=== PATIENT | female | born 1990 | race Caucasian/White ===

== ENCOUNTER 2021-06-10 00:27 | Day surgery (SDC) | payer OTHER, MEDICAID, SELFPAY ==
[2021-06-04 15:15] VITALS: BMI 44.0
--- NOTE | 2021-06-04 15:23 | SUR.PREOP ---
Report to the Outpatient Waiting Room, entrance under the green pavilion located off [facility], at time 0630 on date 06/10/21 . OR Time: . - You and your visitor will be asked a series of questions to screen for COVID 19 for your protection. - A mask is required within the hospital. Preoperative COVID Testing Requirements: No COVID Test needed if: (proof is required; if not received patient will have Rapid Test prior to entry) - Patient has received COVID Vaccine at least 14 days prior to procedure date or - Patient has positive COVID test result within last 90 days of surgery date. COVID Test needed if above criteria is not met If not COVID vaccinated a COVID test must be conducted within 72 hours of surgery and patient is asked to isolate self from time of testing until procedure. You will go to the [facility] for your COVID testing. The [facility] site is located at the corner of [address] [facility]. You will only be called if COVID results are positive and your surgeon may reschedule your elective surgery date. Patients may have clear liquids (water, carbonated beverages, clear teas, apple juice) until 3 hours prior to surgery with a maximum of 20 ounces. - No food from midnight until time of surgery - Infants may have breast milk until 4 hours before surgery, infant formula 6 hours prior to surgery. - Children will be allowed to drink immediately following surgery. If applicable, please bring a bottle or sippy cup to assist with drinking. Juice, water, soda, and popsicles are readily available. For infants on formula, please bring formula the day of surgery. Pacifiers are allowed. Take the following medications with a SIP of water the morning of surgery: ___n/a Medications to discontinue per physician ibuprofen Date to take last dose Please no make-up, nail grenadian, hairspray, perfume, deodorant, or body powder the day of surgery. No jewelry (including any body piercings) or valuables the day of surgery, leave them at home. Please take a shower or bath the night before, or the morning of, surgery with an antibacterial soap. Wear comfortable, loose fitting clothing. Children are encouraged to wear pajamas. - Jewelry must be removed prior to entering the operating room. Rings and piercings that are not removed may be cut off. - The hospital will not accept responsibility for valuables. - Please leave all valuables, including medications, at home the day of surgery. If you are going home after surgery, a licensed commercial collections driver must drive you home. - NO public transportation without another adult. - We recommend that an adult stay with you for 24 hours following discharge. - We also recommend that you do not drive, make important decision, drink alcoholic beverages, or take any drugs that were not prescribed by your health care provider for at least 24 hours after your discharge time. For Pediatric surgeries, we recommend two adults accompany the child home (only one inside the building at this time). One visitor will be allowed to accompany the patient into the hospital. Patients visitor will be instructed to remain with patient at all times or leave the building. We will allow the visitor to come back to the postoperative area when patient is ready. Follow any additional instructions given to you from your surgeon. Telephone instructions given to _shalonda rucker and asked if any additional questions and then verbalized understanding. Patient advised to call surgeon office or pre surgery nurse liaison [phone] if any additional questions.
--- NOTE | 2021-06-09 13:27 | WPDANESEPPF ---
Anes - Initial Pre Proc Eval Procedure: Operation Date: 06/10/21 09:30 Proposed Procedures p Diagnostic Laparoscopy, Hysteroscopy Dilation and Curettage with Denisse Endometrial Ablation, Possible Myosure, Bilateral Salpingectomy - Seng Maria MD Date/Time: 06/09/21 13:27 Surgeon: Seng Maria MD Pre Op Diagnosis: pelvic pain, abnormal uterine bleeding Patient Data Age: 30 Gender: F Height: 1.6 m Weight: 112.72 kg Allergies Allergy/AdvReac Type Severity Reaction Status Date / Time sumatriptan Allergy Intermediate Hives Verified 06/10/21 07:54 Home Medications Medication Instructions Recorded Confirmed Type albuterol sulfate 90 mcg/actuation 1 inh INHALATION Q4H 10/20/20 06/04/21 History aerosol inhaler bupropion HCl 150 mg tablet,12 hr 150 mg PO DAILY 10/20/20 06/04/21 History sustained-release buspirone 15 mg tablet 15 mg PO BID 10/20/20 06/04/21 History ibuprofen 200 mg capsule 200 mg PO Q6H PRN 10/20/20 06/04/21 History Patient hx anesthesia problems: none Family hx anesthesia problems: none Results Review: All pre-operative results and documents have been reviewed as part of the pre-operative evaluation. [facility] Past Medical History Medical History (Updated 06/09/21 @ 13:27 by Von Tomas DO) Anxiety Asthma GERD (gastroesophageal reflux disease) PTSD (post-traumatic stress disorder) Surgical History Surgical History History of ankle surgery Family History Family History Father Alcoholism Asthma Hypertension Depression Mother Hypertension Sibling Asthma Acute leukemia Depression Grandparent History of cancer Diabetes mellitus Grandparent Alcoholism History of cancer Hypertension Social History Social History Smoking status: Never smoker Alcohol intake: never Living arrangements: with family Spiritual care concerns: No Anes - Eval Final PreProcedure Day of Procedure 06/09/21 13:27 Patient weight: morbidly obese Heart: regular rate and rhythm Lungs: clear to auscultation and normal air movement Airway: Mallampati scale class III Neurological: alert and oriented Last oral intake: >/= 8 hours ASA classification: III Emergent: no Anesthetic plan: proceed Anesthesia type and monitoring: general ETT and standard monitoring Results Review: All pre-operative results and documents have been reviewed as part of the pre-operative evaluation. Informed Consent: The patient's anesthetic plan and its attendant risks and benefits were discussed with the patient/family/POA. Questions were solicited and answers provided to the satisfaction of the patient/family/POA.
[2021-06-10] VITALS (9 sets, daily range): BP systolic 121–160; BP diastolic 86–101; PULSE 71–102; RESP 12–18; TEMP 36–36.4; O2SAT 94–100
[2021-06-10] MEDS: LACTATED RINGERS 1,000 ML 30 ML IV CONT ×2 (08:05→11:05)
[2021-06-10] MEDS: ACETAMINOPHEN 500 MG TABLET 1000 MG PO (08:24)
--- NOTE | 2021-06-10 08:33 | PM.IMHP ---
H&P: HPI History of Present Illness Date/Time: 06/10/21 08:33 Patient with a history of pelvic pain, severe dysmenorrhea for over a year and has had irregular bleeding for over six months. She has had ultrasounds and MRIs. The last MRI showed small fibroids and possible adenomyosis. The fibroids were not seen with initial MRI. She has been treated for subclinical endometritis and this did not help her cramping. She has been tried on several oral contraceptive pills and has had continued irregular bleeding and cramping. She declines IUD other hormonal option. She has had an endometrial biopsy which was normal. Discussed options of endometrial ablation and risk benefits which she agrees to. Recommend diagnostic laparoscopy due to persistent pain. She has been informed of risk benefit of this procedure and agrees to laparoscopy. Chief Complaint: cramping and irregular bleeding Review of Systems Review of Systems: All systems reviewed & are unremarkable except as noted in HPI and below Cardiovascular: Cardiovascular: Reports no additional cardiovascular complaints, Denies chest pain and Denies dyspnea Respiratory: Respiratory: Reports no additional respiratory complaints and Denies dyspnea Gastrointestinal: Gastrointestinal: Reports abdominal pain, Denies change in bowel habits, Denies diarrhea, Denies nausea and Denies vomiting Genitourinary: Genitourinary: Reports pelvic pain Musculoskeletal: Musculoskeletal: Reports back pain Integumentary/Breasts: Skin/Breast: Reports system reviewed and no additional complaints, except as docu Neurologic: Reports system reviewed and no additional complaints, except as documented PMFSH Past Medical History Medical History Anxiety Asthma GERD (gastroesophageal reflux disease) PTSD (post-traumatic stress disorder) Surgical History Surgical History History of ankle surgery Family History Family History Father Alcoholism Asthma Hypertension Depression Mother Hypertension Sibling Asthma Acute leukemia Depression Grandparent History of cancer Diabetes mellitus Grandparent Alcoholism History of cancer Hypertension Social History Social History Smoking status: Never smoker Alcohol intake: never Living arrangements: with family Spiritual care concerns: No Meds Home Medications and Allergies Home Medications Medication Instructions Recorded Confirmed Type albuterol sulfate 90 mcg/actuation 1 inh INHALATION Q4H 10/20/20 06/04/21 History aerosol inhaler bupropion HCl 150 mg tablet,12 hr 150 mg PO DAILY 10/20/20 06/04/21 History sustained-release buspirone 15 mg tablet 15 mg PO BID 10/20/20 06/04/21 History ibuprofen 200 mg capsule 200 mg PO Q6H PRN 10/20/20 06/04/21 History Allergies Allergy/AdvReac Type Severity Reaction Status Date / Time sumatriptan Allergy Intermediate Hives Verified 06/10/21 07:54 Vital Signs Vital Signs - 24 hr 06/10/21 08:19 Temperature 97.3 F L Pulse Rate 87 Respiratory Rate 16 Pulse Oximetry 98 Exam Const: Orientation/consciousness: oriented to person and oriented to place HENMT: Head: normal to inspection Eyes: General: appearance normal, both eyes and all related structures Resp: Effort & Inspection: normal respiratory effort Auscultation: clear to auscultation bilaterally Cardio: Rate: regular rate Rhythm: regular rhythm GI: Inspection: normal to inspection GI Palp: No Rebound tenderness present : External Female Exam: normal external appearance Speculum Exam - Vagina: normal appearance of the vagina Speculum Exam - Cervix: normal appearance of the cervix Bimanual exam- vagina & uterus: other (uterus mildly tender anteriorly) Bimanual Exam- Adnexa, other: no
[2021-06-10] MEDS: KETOROLAC 15 MG/ML VIAL (*BKC) IV PUSH (08:55)
--- NOTE | 2021-06-10 09:08 | WPDHPUPDATE1 ---
History and Physical Update Update Date/Time: 06/10/21 09:08 History and Physical has been reviewed, including an updated exam of the patient. There are NO changes in the patient's condition. Risks, benefits, and alternatives have been discussed and questions answered. Patient agrees to proceed with procedure.
--- NOTE | 2021-06-10 09:26 | WPDHPUPDATE1 ---
History and Physical Update Update Date/Time: 06/10/21 09:26 History and Physical has been reviewed, including an updated exam of the patient. There are NO changes in the patient's condition. Risks, benefits, and alternatives have been discussed and questions answered. Patient agrees to proceed with procedure. Patient has been previously counseled regarding risk of poor outcome if she gets and she has satisfied parity and no desire for future conception and desires sterilization. Discussed bilateral salpingectomy as preferred method due to possible decrease risk of ovarian cancer in the future. She desires this. Will also perform the bilateral salpingectomy at time of laparoscopy as previously counseled.
[2021-06-10] MEDS: ceFAZolin 2 GM/D5W 50 ML 2 GM/50 ML BAG IVPB (09:36)
[2021-06-10] MEDS: BUPIVACAINE HCL 0.5% PF 30 ML VIAL INFILTRATE (10:26)
[2021-06-10] MEDS: fentaNYL CITRATE INJ (*CRX) 100 MCG/2 ML VIAL 25 MCG IV PUSH ×4 (11:38→12:01)
--- NOTE | 2021-06-11 09:35 | W.PM.PROC2 ---
Procedure Note - Detailed Date of Procedure 06/11/21 Pre-op Diagnosis pelvic pain, abnormal uterine bleeding, satisfied parity Post-op Diagnosis Same Procedure Performed 1. Diagnostic laparoscopy 2. Laparoscopic bilateral salpingectomy 3. Hysteroscopic endometrial ablation Surgeon Seng Maria MD Field Checker Beto Sarmiento Anesthesia General Indications Patient with a long history of dysmenorrhea and menometorrhagia. She has satisfied parity and desires permanent sterilization. Also has opted for endometrial ablation to help with the irregular bleeding. Findings Uterus sound to 7cm, cervix 3cm, on laparoscopy uterus appeared soft, no fibroids seen, no endometriosis or scar tissue, normal liver edge. Uterine cavity normal, proliferative endometrial lining. Description of Procedure After informed consent was obtained patient was taken to the operating room and general endotracheal anesthesia was administered. She was placed in low lithotomy position. Exam under anesthesia performed. No masses palpated. She was prepped in sterile fashion. Attention was turned to the vagina speculum inserted single-tooth tenaculum placed on anterior lip of the cervix. Uterus sound to 7cm. [place] uterine manipulator placed into the cervical canal. The speculum was removed. Attention was then turned to the abdomen. With sterile gloves a vertical incision was made at the umbilicus and a Veress needle was inserted into the abdomen confirmation into the abdomen obtained with free flow of fluid and normal peritoneal pressures. A pneumoperitoneum of 15 mm per mercury was obtained. The 5 mm port was inserted under laparoscopic visualization. Patient was placed in Trendelenburg position. Attention was turned to the left side of the abdomen and a 5 mm port was inserted under laparoscopic visualization. The pelvic organs were visualized. Attention was turned to the right side of the abdomen and another 5 mm port was inserted under laparoscopic visualization. The pelvis was inspected no endometriosis lesions seen in cul de sac or side wall or ovaries. Using the LigaSure the right fallopian tube was excised to near the entrance to the uterus. This was removed through the port. Attention was then turned to the left fallopian tube which was grabbed at the distal end and cauterized from the mesial salpinx to within a cm of the entrance to the entrance to the uterus. The fallopian tube was removed through the 5 mm port. Hemostasis was noted at both sites. Patient was taken out of Trendelenburg position the pneumoperitoneum was released. The skin incisions were closed with 4.0 vicryl and hemoderm. After informed consent was obtained patient was taken to the operating room and adequate IV sedation was administered. Attention was turned to the vagina. Speculum was inserted. Single-tooth tenaculum placed on the anterior lip of the cervix. The uterus was sounded to 7 cm. The cervix was dilated to an 8 Topete dilator. The cervical length was 3cm. The hysteroscope was inserted into the cavity. The findings were a normal uterine cavity with moderately proliferative tissue. The hysteroscope was removed. The cavity was sharply curretted. The Denisse ablation instrument was inserted into the cavity. Cavity assessment was performed and confirmed intact. The ablation was enabled. After 120 seconds the Denisse stopped. The ablation instrument was removed. The hysteroscope was inserted and there was noted to be good eschar with the cavity. The hysteroscope was removed the single-tooth tenaculum was removed hemostasis was noted at the tenaculum site. Sponge count correct. She was taken to recovery room in stable condition. Estimated Blood Loss 5 Drains No Packing No Pathology Yes (right and left fallopian tube segments 2. Endometrial currettings) Complications No immediate complications Condition Stable Disposition PACU
== END 2021-06-10 13:20 | disposition home or self-care (01) ==
PROVIDERS: Visit Provider Obstetrics & Gynecology
PROC: 0UDB8ZZ Extraction of Endometrium, Via Natural or Artificial Opening Endoscopic (ICD-10-PCS; CPT 58558; principal; 2021-06-10 09:30)
DX: N92.1 Excessive and frequent menstruation with irregular cycle (principal); R10.2 Pelvic and perineal pain; Z30.2 Encounter for sterilization; N94.6 Dysmenorrhea, unspecified; N85.8 Other specified noninflammatory disorders of uterus; J45.909 Unspecified asthma, uncomplicated; K21.9 Gastro-esophageal reflux disease without esophagitis; F41.9 Anxiety disorder, unspecified; F43.10 Post-traumatic stress disorder, unspecified; Z79.51 Long term (current) use of inhaled steroids; E66.01 Morbid (severe) obesity due to excess calories; Z68.41 Body mass index [BMI] 40.0-44.9, adult
CPT/HCPCS: 58661; 58563; 88302; 88305; A9270; J0690; J1100; J1170; J1885; J2250; J2405; J2704; J2710; J3010; J7030; J7120

== ENCOUNTER 2021-10-16 11:33 | Outpatient (CLI) | payer OTHER, MEDICAID, SELFPAY | END 2021-10-16 11:34 | disposition home or self-care (01) | PROVIDERS: PCP Nurse Practitioner Family; Visit Provider Obstetrics & Gynecology | DX: Z01.812 Encounter for preprocedural laboratory examination (principal); R10.2 Pelvic and perineal pain | CPT/HCPCS: 36415; 86850; 86900; 86901 ==

== ENCOUNTER 2021-10-23 02:07 | Day surgery (SDC) | payer OTHER, MEDICAID, SELFPAY ==
--- NOTE | 2021-10-13 10:32 | SUR.PREOP ---
Addendum entered by Keyona Watt RN 10/14/21 10:03: PLEASE BRING YOUR INHALER WITH YOU DAY OF SURGERY. Original Note: Report to the Outpatient Waiting Room, entrance under the [place] pavilion located off [facility], at time 0600 on date 10/23/21. OR Time: 0730. - You and your visitor will be asked a series of questions to screen for COVID 19 for your protection. - Only one visitor is allowed at this time. - The patient visitor is requested to leave or wait in car when not with patient. - A mask is required within the hospital. Patients may have clear liquids (water, carbonated beverages, clear teas, apple juice) until 3 hours prior to surgery with a maximum of 20 ounces. - No food from midnight until time of surgery - Infants may have breast milk until 4 hours before surgery, formula 6 hours prior to surgery. - Children will be allowed to drink immediately following surgery. If applicable, please bring a bottle or sippy cup to assist with drinking. Juice, water, soda, and popsicles are readily available. For infants on formula, please bring formula the day of surgery. Pacifiers are allowed. Take the following medications with a SIP of water the morning of surgery: BUSPIRONE Medications to discontinue per physician PATIENT STATES DR MEDRANO INSTRUCTED HER TO STOP TAKING HER IBUPROFEN 1 WEEK PRIOR TO HAVING SURGERY Please no make-up, nail armenian, hairspray, perfume, deodorant, or body powder the day of surgery. No jewelry (including any body piercings) or valuables the day of surgery, leave them at home. Please take a shower or bath the night before, or the morning of, surgery with an antibacterial soap. Wear comfortable, loose fitting clothing. Children are encouraged to wear pajamas. - Jewelry must be removed prior to entering the operating room. Rings and piercings that are not removed may be cut off. - The hospital will not accept responsibility for valuables. - Please leave all valuables, including medications, at home the day of surgery. If you are going home after surgery, a licensed bobcat driver/labor must drive you home. - NO public transportation without another adult. - We recommend that an adult stay with you for 24 hours following discharge. - We also recommend that you do not drive, make important decision, drink alcoholic beverages, or take any drugs that were not prescribed by your health care provider for at least 24 hours after your discharge time. For Pediatric surgeries, we recommend two adults accompany the child home (only one inside the building at this time). Follow any additional instructions given to you from your surgeon. If you or anyone in your household have experienced Covid symptoms in the past week, please notify your surgeon or the nurse liaison at the phone number below for possible testing. Telephone instructions given to FRITZ GABRIEL and asked if any additional questions and then verbalized understanding. Patient advised to call surgeon office or pre surgery nurse liaison [phone] if any additional questions.
[2021-10-13 10:39] VITALS: BMI 42.5
--- NOTE | 2021-10-22 16:03 | PM.IMHP ---
H&P: HPI History of Present Illness Date/Time: 10/22/21 16:03 Chief Complaint: Heavy periods and pelvic pain. Narrative: She is here for planned laparoscopic robotic assisted hysterectomy.? She is a has a long history, over a year of heavy irregular periods and severe dysmenorrhea. Her symptoms have been resistant to? hormonal treatment also resistant to endometrial ablation.?She continued to have prolonged periods with heavy flow after the ablation. She has had a prior laparoscopy no endometriosis seen.?She also had a prior salpingectomy at the time of her endometrial ablation. Prior endometrial biopsy was normal and curretage specimen normal. She has had prior imaging studies. She has had ultrasounds and MRIs. The last MRI showed small fibroids and possible adenomyosis. The fibroids were not seen with initial MRI. She has been treated for subclinical endometritis prior to the ablation and hysteroscopy and this did not help her cramping. She has been tried on several oral contraceptive pills and has had continued irregular bleeding and cramping. She desires definitive treatment of her symptoms with hysterectomy. Review of Systems Review of Systems: All systems reviewed & are unremarkable except as noted in HPI and below Constitutional: Constitutional: Reports no additional constitutional complaints Eyes: Eyes: Reports no additional eye complaints Cardiovascular: Cardiovascular: Reports no additional cardiovascular complaints Respiratory: Respiratory: Reports no additional respiratory complaints Gastrointestinal: Gastrointestinal: Reports no additional gastrointestinal complaints Genitourinary: Genitourinary: Reports no additional female genitourinary complaints and Reports as per HPI Integumentary/Breasts: Skin/Breast: Reports system reviewed and no additional complaints, except as docu Neurologic: Reports system reviewed and no additional complaints, except as documented Psychiatric: Psychiatric: Reports no additional psychiatric complaints Hematologic/Lymphatic: Hematologic/Lymphatic: Reports no additional hematologic/lymphatic complaints ON LICENSE OF [facility] Past Medical History Medical History Anxiety Asthma GERD (gastroesophageal reflux disease) Morbid obesity PTSD (post-traumatic stress disorder) Surgical History Surgical History History of ankle surgery Hx of bilateral salpingectomy Status post hysteroscopic ablation of endometrium Family History Family History Father Alcoholism Asthma Hypertension Depression Mother Hypertension Sibling Asthma Acute leukemia Depression Grandparent History of cancer Diabetes mellitus Grandparent Alcoholism History of cancer Hypertension Social History Social History Smoking status: Never smoker Spiritual care concerns: No Meds Home Medications and Allergies Home Medications Medication Instructions Recorded Confirmed Type albuterol sulfate 90 mcg/actuation 2 puff inhalation Q4H PRN 10/20/20 10/13/21 History aerosol inhaler Shortness Of Breath bupropion HCl 150 mg tablet,12 hr 150 mg PO HS 10/20/20 10/13/21 History sustained-release buspirone 15 mg tablet 15 mg PO BID 10/20/20 10/13/21 History ibuprofen 200 mg capsule 400 mg PO Q6H PRN Pain 10/20/20 10/13/21 History Allergies Allergy/AdvReac Type Severity Reaction Status Date / Time sumatriptan Allergy Intermediate Hives Verified 10/13/21 10:22 Exam Const: General: comfortable and no acute distress Orientation/consciousness: oriented to person, oriented to place and oriented to time Eyes: General: appearance normal, both eyes and all related structures Neck: Neck: normal visual inspection Resp: Effort & Inspection: normal respiratory effort Auscultati
[2021-10-23] VITALS (8 sets, daily range): BP systolic 118–146; BP diastolic 77–100; PULSE 85–96; RESP 14–18; TEMP 36.2–36.9; O2SAT 93–100
--- NOTE | 2021-10-23 06:36 | WPDANESEPPF ---
Anes - Initial Pre Proc Eval Procedure: Operation Date: 10/23/21 07:30 Proposed Procedures p Robotic Assisted Total Vaginal Hysterectomy - Seng Maria MD Date/Time: 10/23/21 06:36 Surgeon: Seng Maria MD Pre Op Diagnosis: chronic pelvic pain, dysmenorrhea, menorrhagia Patient Data Age: 30 Gender: F Height: 1.6 m Weight: 109 kg Allergies Allergy/AdvReac Type Severity Reaction Status Date / Time sumatriptan Allergy Intermediate Hives Verified 10/13/21 10:22 Home Medications Medication Instructions Recorded Confirmed Type albuterol sulfate 90 mcg/actuation 2 puff inhalation Q4H PRN 10/20/20 10/13/21 History aerosol inhaler Shortness Of Breath bupropion HCl 150 mg tablet,12 hr 150 mg PO HS 10/20/20 10/13/21 History sustained-release buspirone 15 mg tablet 15 mg PO BID 10/20/20 10/13/21 History ibuprofen 200 mg capsule 400 mg PO Q6H PRN Pain 10/20/20 10/13/21 History Patient hx anesthesia problems: none Family hx anesthesia problems: none Results Review: All pre-operative results and documents have been reviewed as part of the pre-operative evaluation. [facility] Past Medical History Medical History (Updated 10/23/21 @ 06:36 by Wong Arguelles MD) Anxiety Asthma GERD (gastroesophageal reflux disease) Morbid obesity PTSD (post-traumatic stress disorder) Surgical History Surgical History History of ankle surgery Hx of bilateral salpingectomy Status post hysteroscopic ablation of endometrium Family History Family History Father Alcoholism Asthma Hypertension Depression Mother Hypertension Sibling Asthma Acute leukemia Depression Grandparent History of cancer Diabetes mellitus Grandparent Alcoholism History of cancer Hypertension Social History Social History Smoking status: Never smoker Spiritual care concerns: No Anes - Eval Final PreProcedure Day of Procedure 10/23/21 06:36 Patient weight: morbidly obese Heart: regular rate and rhythm Lungs: clear to auscultation Airway: Mallampati scale class III Neurological: alert and oriented Last oral intake: >/= 8 hours ASA classification: III Emergent: no Anesthetic plan: proceed Anesthesia type and monitoring: general ETT and standard monitoring Results Review: All pre-operative results and documents have been reviewed as part of the pre-operative evaluation. Informed Consent: The patient's anesthetic plan and its attendant risks and benefits were discussed with the patient/family/POA. Questions were solicited and answers provided to the satisfaction of the patient/family/POA.
[2021-10-23] MEDS: ACETAMINOPHEN 500 MG TABLET 1000 MG PO (06:59)
[2021-10-23] MEDS: KETOROLAC 15 MG/ML VIAL (*BKC) IV PUSH (07:00)
--- NOTE | 2021-10-23 07:01 | WPDHPUPDATE1 ---
History and Physical Update Update Date/Time: 10/23/21 07:01 History and Physical has been reviewed, including an updated exam of the patient. There are NO changes in the patient's condition. Risks, benefits, and alternatives have been discussed and questions answered. Patient agrees to proceed with procedure.
[2021-10-23] MEDS: LACTATED RINGERS 1,000 ML 30 ML IV CONT ×2 (07:03→10:27)
[2021-10-23] MEDS: ceFAZolin 2 GM/D5W 50 ML 2 GM/50 ML BAG IVPB (07:30)
--- NOTE | 2021-10-23 10:01 | W.PM.PROC2 ---
Procedure Note - Detailed Date of Procedure 10/27/21 Pre-op Diagnosis chronic pelvic pain, dysmenorrhea, menorrhagia Post-op Diagnosis Other (1. menorrhagia 2. Pelvic pain 3. Fibroid 4. Right ovarian cyst hemorrhagic) Procedure Performed 1. Robotic assisted laparoscopic vaginal hysterectomy 2. Excision of right ovarian cyst Surgeon Seng Maria MD Supervisor Mapping Beto Sarmiento Anesthesia General Indications Patient with chronic pelvic pain and long history of menorrhagia not relieved with hormonal options or endometrial ablation. She desires definitive treatment. Findings Large right ovarian cyst, hemorrhagic fluid when entered Description of Procedure After informed consent was obtained she was taken to the operating room and general endotracheal anesthesia was administered. She was placed in low lithotomy position. An exam under anesthesia was performed. She was and prepped and draped in sterile fashion. Sandoval catheter placed in bladder. Attention was turned to the vagina speculum was inserted. Single-tooth tenaculum placed on anterior lip of the cervix the uterus sounded to 8 cm. The cervix was dilated to a 8 Topete dilator. A size 8 uterine manipulator was inserted and balloon would not inflate. A 6 cm small was inserted and balloon inflated. A size 3.0 colp cup was secured in the vagina. Then attention was turned to the abdomen with new sterile gloves. .25% marcaine injected subcutaneously. An incision was made horizontal 2 cm above the umbilicus. A veress needle was inserted into abdomen confirmation obtained with normal peritoneal pressures and free flow of saline through port. A Pneumoperitoneum of 15 mm per mercury was obtained. The robotic port was inserted under laparoscopic visualization. A small incision was made approximately 6 cm lateral to the port on the left side of the port. A size 8mm robotic port was inserted under laparoscopic visualization into the abdomen on the left side. Attention was turned to the right side of abdomen and a robotic port inserted under laparoscopic visualization. An assistant casino shift manager port was inserted superior and medial to this. She was placed in trendelberg position. Robotic arms attached. Instruments attached. Attention was turned to surgical consule. The right round ligament was ligated with vessel sealer instrument. The anterior leaf of the broad ligament was dissected anteriorly. The vesicoperitoneum was dissected from the lower uterus. The right side of the bladder was dissected from the lower uterine segment and upper cervix. The right ovarian ligament was ligated with the vessel sealer. The a posterior leaf of the broad ligament was further dissected. The uterine vessels on the right were skeletonized. The ascending uterine vessels on the right were cauterized. The uterine vessels were ligated. Attention was turned to the left round ligament which was ligated and the anterior leaf of the broad ligament was dissected anteriorly. The rest of the vesicouterine peritoneum was dissected off of the uterus. Once the bladder was dissected below the colp cup then the posterior leaf of the broad ligament was further dissected. The left ovarian ligament was ligated. The ascending uterine vessels were ligated with the vessel sealer. The uterine arteries were skeletonized. The uterine arteries were ligated. The cardinal ligaments were ligated. This was done on both sides. An incision was made anterior colpotomy incision was made and this was carried around until the cervix was removed from the vagina. The uterus and cervix were removed through the vagina. The vaginal cuff was closed in a running fashion with 0 V lock suture. Hemostasis was noted. The right ovarian cyst was incised. Dark mostly clotted blood was removed. The cyst wall was excised. Cautery was applied to area. Hemostasis noted. The pelvis was irrigated. Hemostasis noted. Hemoderm was applied in the pelvis. The patient was taken out of Trend
[2021-10-23] MEDS: fentaNYL CITRATE INJ (*CRX) 100 MCG/2 ML VIAL 25 MCG IV PUSH ×3 (10:48→10:58)
--- NOTE | 2021-10-23 11:45 | PC.NURSE ---
This patient, Emilie Cavanaugh, was received from PACU via stretcher on 10/23/21 at 1145. Patient oriented to unit policies and routines
[2021-10-23] MEDS: HYDROcodone/acetaminophen (*CRX) 5-325 MG TABLET 1 TAB PO (13:46)
[2021-10-23] MEDS: IBUPROFEN 600 MG TABLET PO (13:47)
== END 2021-10-23 16:50 | disposition home or self-care (01) ==
LOC: ANHSURGERY 11:01 → ANHOB2 11:37
PROVIDERS: PCP Nurse Practitioner Family; Visit Provider Obstetrics & Gynecology
PROC: (CPT 58550; principal; 2021-10-23 07:30)
DX: N92.0 Excessive and frequent menstruation with regular cycle (principal); N83.11 Corpus luteum cyst of right ovary; R10.2 Pelvic and perineal pain; D25.9 Leiomyoma of uterus, unspecified; N72 Inflammatory disease of cervix uteri; N94.4 Primary dysmenorrhea; Z79.51 Long term (current) use of inhaled steroids; F41.9 Anxiety disorder, unspecified; J45.909 Unspecified asthma, uncomplicated; K21.9 Gastro-esophageal reflux disease without esophagitis; F43.10 Post-traumatic stress disorder, unspecified; E66.01 Morbid (severe) obesity due to excess calories; Z68.41 Body mass index [BMI] 40.0-44.9, adult
CPT/HCPCS: 58550; 58662; S2900; 36415; 86850; 86900; 86901; 88305; 88307; 99199; A9270; J0690; J1100; J1170; J1885; J2250; J2405; J2704; J2710; J3010; J7030; J7120

== ENCOUNTER 2022-02-08 16:47 | Emergency (ER) | payer OTHER, MEDICAID, SELFPAY ==
[2022-02-08 16:50] VITALS: BP 131/82; PULSE 94; RESP 20; TEMP 36.6; O2SAT 98
--- NOTE | 2022-02-08 16:50 | ED.URI ---
HPI - URI/Sore Throat General Chief Complaint: Upper Respiratory Infection Stated Complaint: Sore Throat Time Seen by Provider: 02/08/22 16:50 Source: patient and RN notes reviewed History of Present Illness HPI Narrative: patient is a 31-year-old female who presents to the Urgent Care with complaints of a sore throat and postnasal drainage for 2 weeks. Patient denies any fever, nausea or vomiting. States that she wanted to be evaluated for strep considering her daughter woke up with a sore throat this morning. Patient's symptoms have not changed over the last 2 weeks. She has been taking cold medication. No other acute complaints. No acute distress noted. Patient aware of the plan of care. Some parts of this dictation were generated by voice recognition software and may contain typographical and/or grammatical inaccuracies. Related Data Home Medications Medication Instructions Recorded Confirmed albuterol sulfate 90 mcg/actuation 2 puff inhalation Q4H PRN 10/20/20 11/16/21 aerosol inhaler Shortness Of Breath bupropion HCl 150 mg tablet,12 hr 150 mg PO HS 10/20/20 11/16/21 sustained-release buspirone 15 mg tablet 15 mg PO BID 10/20/20 11/16/21 escitalopram oxalate 5 mg tablet 5 mg DAILY 02/08/22 02/08/22 Allergies Allergy/AdvReac Type Severity Reaction Status Date / Time sumatriptan Allergy Intermediate Hives Verified 02/08/22 17:13 Review of Systems Review of Systems: CONSTITUTIONAL: Denies fever, chills, or sweats. EYES: Denies visual changes, redness, or discharge. ENT: Denies rhinorrhea, congestion, or otalgia. Reports a sore throat CARDIOVASCULAR: Denies chest pain, palpitations, or edema. RESPIRATORY: Denies cough or dyspnea. GASTROINTESTINAL: Denies abdominal pain, nausea, vomiting, or diarrhea. GENITOURINARY: Denies dysuria or hematuria. SKIN: Denies rash or itching. MUSCULOSKELETAL: Denies back pain, joint pain, or myalgia. NEUROLOGIC: Denies headache, numbness, or weakness. All other systems reviewed are negative, except as documented in HPI. [facility] Past Medical History Medical History Anxiety Asthma GERD (gastroesophageal reflux disease) Morbid obesity PTSD (post-traumatic stress disorder) Surgical History Surgical History History of ankle surgery Hx of bilateral salpingectomy S/P removal of ovarian cyst right S/P vaginal hysterectomy Status post hysteroscopic ablation of endometrium Family History Family History Father Alcoholism Asthma Hypertension Depression Mother Hypertension Sibling Asthma Acute leukemia Depression Grandparent History of cancer Diabetes mellitus Grandparent Alcoholism History of cancer Hypertension Social History Social History Smoking status: Never smoker Spiritual care concerns: No Comments At the time of my signature, I reviewed and agree with the nursing past medical, surgical, social, and family history. There is no relevant family history pertinent to the patient complaint. Exam Narrative: GENERAL: This is a well-nourished, well-developed patient, in no apparent distress. HEAD: normocephalic, atraumatic. EYES: PERRL. Sclera clear/white. Vision is grossly intact. EARS: External ears normal, auditory canals clear and without drainage, TMs normal without perforation. Hearing grossly intact. NOSE: External nose normal with no obvious nasal discharge, nares without redness, no rhinorrhea. THROAT: Mucous membranes moist, posterior pharynx clear. mild postnasal drainage NECK: Neck supple, non-tender without lymphadenopathy CARDIOVASCULAR: Regular rate and rhythm without murmurs, gallops, or rubs. RESPIRATORY: Clear to auscultation. Breath sounds equal bilaterally. No wheezes, rales, or rhonchi. SKIN: war
== END 2022-02-08 17:41 | disposition home or self-care (01) ==
PROVIDERS: Emergency Provider Nurse Practitioner Family; PCP Nurse Practitioner Family
DX: J02.9 Acute pharyngitis, unspecified (principal); J45.909 Unspecified asthma, uncomplicated; K21.9 Gastro-esophageal reflux disease without esophagitis; E66.01 Morbid (severe) obesity due to excess calories; Z68.41 Body mass index [BMI] 40.0-44.9, adult; F41.9 Anxiety disorder, unspecified
CPT/HCPCS: 87081; 87880; 99213; G0463

== ENCOUNTER 2022-04-13 19:00 | Emergency (ER) | payer OTHER, MEDICAID, SELFPAY ==
--- NOTE | 2022-04-13 19:08 | ED.DENTAL ---
HPI - Dental/Oral General Chief complaint: Dental/Oral Stated complaint: tooth pain Time Seen by Provider: 04/13/22 19:08 Source: patient Mode of arrival: ambulatory History of Present Illness HPI Narrative: 31 y/o female presented for c/o left upper dental pain for 5 days. Endorses a broken tooth to that site since November 2021. She has a dental appointment in 1 week. Took some of her daughter's left over amoxicillin for the last 3 days. She endorses she is unable to eat due to the pain. Taking ibuprofen and Orajel without significant relief. Currently denies nausea, vomiting, diarrhea, fevers or chills. MD Complaint: tooth pain Related Data Home Medications Medication Instructions Recorded Confirmed buspirone 15 mg tablet 15 mg PO BID 10/20/20 04/13/22 escitalopram oxalate 5 mg tablet 5 mg PO DAILY 02/08/22 04/13/22 pantoprazole 40 mg tablet,delayed 40 mg PO BID 04/13/22 04/13/22 release Allergies Allergy/AdvReac Type Severity Reaction Status Date / Time sumatriptan Allergy Intermediate Hives Verified 04/13/22 19:08 Review of Systems Review of Systems: CONSTITUTIONAL: Denies body aches, fever, chills ENT: Denies rhinorrhea, congestion, sore throat, or otalgia. Reports dental pain CARDIOVASCULAR: Denies chest pain, palpitations RESPIRATORY: Denies cough or dyspnea. SKIN: Denies rash, itching, or wounds. MUSCULOSKELETAL: Denies myalgia. NEUROLOGIC: Denies headache, numbness, tingling, or weakness. [facility] Past Medical History Medical History Anxiety Asthma GERD (gastroesophageal reflux disease) Morbid obesity PTSD (post-traumatic stress disorder) Surgical History Surgical History History of ankle surgery Hx of bilateral salpingectomy S/P removal of ovarian cyst right S/P vaginal hysterectomy Status post hysteroscopic ablation of endometrium Family History Family History Father Alcoholism Asthma Hypertension Depression Mother Hypertension Sibling Asthma Acute leukemia Depression Grandparent History of cancer Diabetes mellitus Grandparent Alcoholism History of cancer Hypertension Social History Social History Smoking status: Never smoker Spiritual care concerns: No Comments At time of signature, I have reviewed and agree with nursing past medical, surgical, social and family history unless otherwise noted. Please see nursing chart for further information. There is no relevant family history pertinent to the presenting complaint Exam Narrative: GENERAL: Appears in pain; no acute distress. EYES: EOMI. No redness or drainage. Conjunctivae normal. ENT: Left cheek with mild swelling no erythema; Dental pain location of #15 broken tooth, mild gum swelling and tenderness; Mucous membranes pink and moist. TMs normal bilaterally. Throat normal. Uvula midline. NECK: Normal AROM. No lymphadenopathy or erythema. CHEST: No respiratory distress. Clear to auscultation. HEART: Regular rate and rhythm. No murmur appreciated. SKIN: Warm, dry, no rash. Normal skin turgor. NEURO: No focal deficits. Course Course Emergency Course: Patient is aware of diagnosis, understands and agrees to treatment plan. Anticipatory guidance given. Patient agrees to follow-up as directed and is aware of reasons to seek care at the emergency department. Portions of this record may have been created with voice recognition software Level of Care: Express Care Visit Vital Signs Vital signs: Vital Signs Temperature 97.3 F L 04/13/22 19:09 Pulse Rate 82 04/13/22 19:09 Respiratory Rate 18 04/13/22 19:09 Blood Pressure 147/101 H 04/13/22 19:09 Pulse Oximetry 99 04/13/22 19:09 Oxygen Delivery Room Air 04/13/22 19:09 Temperature 97.3 F L 01
[2022-04-13 19:09] VITALS: BP 147/101; PULSE 82; RESP 18; TEMP 36.3; O2SAT 99
[2022-04-13 19:11] VITALS: BP 147/101; PULSE 82; RESP 18; TEMP 36.3; O2SAT 99
== END 2022-04-13 19:26 | disposition home or self-care (01) ==
PROVIDERS: Emergency Provider Nurse Practitioner Family; PCP Nurse Practitioner Family
DX: K04.7 Periapical abscess without sinus (principal); F41.9 Anxiety disorder, unspecified; J45.909 Unspecified asthma, uncomplicated; K21.9 Gastro-esophageal reflux disease without esophagitis; E66.01 Morbid (severe) obesity due to excess calories; Z68.41 Body mass index [BMI] 40.0-44.9, adult
CPT/HCPCS: 99213; G0463

== ENCOUNTER 2022-05-02 19:22 | Emergency (ER) | payer OTHER, MEDICAID, SELFPAY ==
--- NOTE | ~2022-05-02 | XR_ITS ---
Right ankle Technique: AP, oblique, and lateral views were obtained. Clinical History: Inversion injury Findings: No acute fracture or dislocation is seen. Osseous alignment is anatomic. Ankle mortise and other visualized joint spaces are preserved. Soft tissues are otherwise unremarkable. Impression: Unremarkable right ankle. Reviewed, dictated and finalized at [facility]. 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
[2022-05-02 19:28] VITALS: BP 156/94; PULSE 99; RESP 14; TEMP 36.2; O2SAT 99
[2022-05-02 19:38] VITALS: BP 156/94; PULSE 99; RESP 14; TEMP 36.2; O2SAT 99
--- NOTE | 2022-05-02 19:45 | ED.GENADULT ---
HPI - General Adult General Chief complaint: Extremity Injury, Lower Stated complaint: Right Ankle Injury Source: patient Mode of arrival: ambulatory Limitations: no limitations History of Present Illness HPI narrative: Patient presents for evaluation of right ankle pain. Symptom onset just prior to arrival. She is walking on steps when she twisted her ankle. She now reports 8/10 pain in the affected area. Pain is throbbing and sharp. No radicular component. No paresthesias. She tried taking ibuprofen for symptoms with minimal improvement thereafter. She has fractured both ankles in the past and required surgical intervention on the left. No additional complaints or concerns. Related Data Home Medications Medication Instructions Recorded Confirmed buspirone 15 mg tablet 15 mg PO BID 10/20/20 05/02/22 pantoprazole 40 mg tablet,delayed 40 mg PO DAILY 04/13/22 05/02/22 release albuterol 90 mcg/actuation aerosol 90 mcg inhalation Q4H PRN Dyspnea 05/02/22 05/02/22 inhaler bupropion HCl 75 mg tablet 75 mg PO BID 05/02/22 05/02/22 Allergies Allergy/AdvReac Type Severity Reaction Status Date / Time sumatriptan Allergy Intermediate Hives Verified 05/02/22 19:35 Review of Systems Review of Systems: CONSTITUTIONAL: Denies fever, chills, or sweats. EYES: Denies visual changes, redness, or discharge. ENT: Denies rhinorrhea, congestion, sore throat, or otalgia. CARDIOVASCULAR: Denies chest pain, palpitations, or edema. RESPIRATORY: Denies cough or dyspnea. GASTROINTESTINAL: Denies abdominal pain, nausea, vomiting, or diarrhea. GENITOURINARY: Denies dysuria or hematuria. SKIN: Reports bruising to right ankle. Denies rash or itching. MUSCULOSKELETAL: Reports right ankle pain and swelling. NEUROLOGIC: Denies headache, numbness, dizziness, or weakness. PSYCHIATRIC: Denies anxiety or depression. [facility] Past Medical History Medical History Anxiety Asthma GERD (gastroesophageal reflux disease) Morbid obesity PTSD (post-traumatic stress disorder) Surgical History Surgical History History of ankle surgery Hx of bilateral salpingectomy S/P removal of ovarian cyst right S/P vaginal hysterectomy Status post hysteroscopic ablation of endometrium Family History Family History Father Alcoholism Asthma Hypertension Depression Mother Hypertension Sibling Asthma Acute leukemia Depression Grandparent History of cancer Diabetes mellitus Grandparent Alcoholism History of cancer Hypertension Social History Social History Smoking status: Never smoker Living arrangements: with family Spiritual care concerns: No Exam Narrative: GENERAL: Well-appearing, well-nourished, and in no acute distress. HEAD: Normocephalic, atraumatic. EYES: PERRLA and EOMI. ENT: Nares clear, no rhinorrhea or epistaxis. Mucous membranes moist. Oropharynx without tonsillar hypertrophy exudate or other lesions. Bilateral TMs pearly corea nonbulging NECK: Supple. No adenopathy or masses. No carotid bruits or JVD CHEST: Clear to auscultation. No respiratory distress. No wheezes rales or rhonchi HEART: Regular rate and rhythm. No murmur heard. Normal peripheral pulses. ABDOMEN: Soft, nontender, nondistended, normal active bowel sounds. EXTREMITIES: Able to dorsi and plantar flex right foot. Trace swelling noted to the lateral aspect of the right ankle. There is tenderness noted over the right lateral ankle without any crepitus or deformity. SKIN: Ecchymosis noted to the lateral aspect of the right ankle NEURO: No focal deficits. Alert and oriented x3. PSYCH: Normal mood and affect. Course Course Emergency Course: This is a 31-year-old female who presented for evaluation of right
== END 2022-05-02 19:55 | disposition home or self-care (01) ==
PROVIDERS: Emergency Provider Nurse Practitioner; PCP Nurse Practitioner Family
DX: S93.401A Sprain of unspecified ligament of right ankle, initial encounter (principal); X50.9XXA Other and unspecified overexertion or strenuous movements or postures, initial encounter; F41.9 Anxiety disorder, unspecified; J45.909 Unspecified asthma, uncomplicated; K21.9 Gastro-esophageal reflux disease without esophagitis; E66.01 Morbid (severe) obesity due to excess calories; Z68.41 Body mass index [BMI] 40.0-44.9, adult; F43.10 Post-traumatic stress disorder, unspecified
CPT/HCPCS: 73610; 99213; G0463

== ENCOUNTER 2022-10-02 17:37 | Emergency (ER) | payer OTHER, MEDICAID, SELFPAY ==
--- NOTE | ~2022-10-02 | XR_ITS ---
EXAMINATION: XR ribs RT 2V Exam Date/Time: 10/02/2022 17:50 CDT HISTORY: LATERAL FALL, LATERAL MID RIB PAIN Comparison: X-ray chest 01/09/2014. RESULT: Lines, tubes, and devices: None. Lungs and pleura: Clear, as visualized. Cardiothymic silhouette: Stable, as visualized. Other: No acute osseous or upper abdominal finding. IMPRESSION: No acute osseous finding in the right ribs. Reviewed, dictated and finalized at location K.
[2022-10-02 17:48] VITALS: BP 138/85; PULSE 92; RESP 16; TEMP 36.6; O2SAT 99
--- NOTE | 2022-10-02 18:11 | ED.GENADULT ---
HPI - General Adult General Chief complaint: Fall Stated complaint: Fall Injury/Right Side Pain Source: patient Mode of arrival: ambulatory Limitations: no limitations History of Present Illness HPI narrative: Patient presents for evaluation of right-sided rib pain. Symptom onset 2 days ago. 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 She her right chest wall against the ground. She did not hit her head. No loss of consciousness. She is not on blood thinners. At rest her pain is 6/10 severity but increases 8/10 with certain movements or deep inspiration. She does not smoke. Denies shortness of breath. She has underlying asthma but states that her symptoms are not worse at current time when compared to her baseline. She has taken 800mg ibuprofen without much improvement. Related Data Home Medications Medication Instructions Recorded Confirmed buspirone 15 mg tablet 15 mg PO BID 10/20/20 10/02/22 pantoprazole 40 mg tablet,delayed 40 mg PO DAILY 04/13/22 10/02/22 release bupropion HCl 150 mg tablet,12 hr 150 mg PO BID 10/02/22 10/02/22 sustained-release escitalopram oxalate 5 mg tablet 5 mg PO DAILY 10/02/22 10/02/22 Allergies Allergy/AdvReac Type Severity Reaction Status Date / Time sumatriptan Allergy Intermediate Hives Verified 10/02/22 18:09 Review of Systems Review of Systems: CONSTITUTIONAL: Denies fever, chills, or sweats. EYES: Denies visual changes, redness, or discharge. ENT: Denies rhinorrhea, congestion, sore throat, or otalgia. CARDIOVASCULAR: Denies chest pain, palpitations, or edema. RESPIRATORY: Denies cough or dyspnea. GASTROINTESTINAL: Denies abdominal pain, nausea, vomiting, or diarrhea. GENITOURINARY: Denies dysuria or hematuria. SKIN: Denies rash or itching. MUSCULOSKELETAL: Reports chest wall pain. NEUROLOGIC: Denies headache, numbness, dizziness, or weakness. PSYCHIATRIC: Denies anxiety or depression. [facility] Past Medical History Medical History Anxiety Asthma GERD (gastroesophageal reflux disease) Morbid obesity PTSD (post-traumatic stress disorder) Rib contusion Surgical History Surgical History History of ankle surgery Hx of bilateral salpingectomy S/P removal of ovarian cyst right S/P vaginal hysterectomy Status post hysteroscopic ablation of endometrium Family History Family History Father Alcoholism Asthma Hypertension Depression Mother Hypertension Sibling Asthma Acute leukemia Depression Grandparent History of cancer Diabetes mellitus Grandparent Alcoholism History of cancer Hypertension Social History Social History Smoking status: Never smoker Living arrangements: with family Spiritual care concerns: No Exam Narrative: GENERAL: Well-appearing, well-nourished, and in no acute distress. HEAD: Normocephalic, atraumatic. EYES: PERRLA and EOMI. ENT: Nares clear, no rhinorrhea or epistaxis. Mucous membranes moist. Oropharynx without tonsillar hypertrophy exudate or other lesions. Bilateral TMs pearly corea nonbulging NECK: Supple. No adenopathy or masses. No carotid bruits or JVD CHEST: Clear to auscultation. No respiratory distress. No wheezes rales or rhonchi. There is tenderness noted to the right lateral chest wall HEART: Regular rate and rhythm. No murmur heard. Normal peripheral pulses. ABDOMEN: Soft, nontender, nondistended, normal active bowel sounds. EXTREMITIES: Normal range of motion. No edema. SKIN: Warm, dry, no rash. NEURO: No focal deficits. Alert and oriented x3. PSYCH: Normal mood and affect. Course Course Emergency Course: This is a 31-year-old female who presented for evaluation of right rib pain following a fall 2 days ago. X-ray ne
== END 2022-10-02 18:28 | disposition home or self-care (01) ==
PROVIDERS: Emergency Provider Nurse Practitioner; PCP Family Medicine
DX: S20.211A Contusion of right front wall of thorax, initial encounter (principal); W10.9XXA Fall (on) (from) unspecified stairs and steps, initial encounter; Y99.0 Civilian activity done for income or pay; J45.909 Unspecified asthma, uncomplicated; K21.9 Gastro-esophageal reflux disease without esophagitis; E66.01 Morbid (severe) obesity due to excess calories; Z68.41 Body mass index [BMI] 40.0-44.9, adult; F41.9 Anxiety disorder, unspecified
CPT/HCPCS: 71100; 99213; G0463

== ENCOUNTER 2023-01-20 17:59 | Emergency (ER) | payer OTHER, MEDICAID, SELFPAY ==
--- NOTE | ~2023-01-20 | XR_ITS ---
EXAMINATION: XR hand RT min 3V INDICATION: Right hand pain TECHNIQUE: Three views of the right hand are obtained. COMPARISON: None available FINDINGS: No fracture, dislocation, or subluxation. The bones, soft tissues, and joint spaces are nor mal. IMPRESSION: 1. No acute osseous abnormality. Reviewed, dictated and finalized at location [facility].
--- NOTE | ~2023-01-20 | XR_ITS ---
EXAMINATION: XR wrist RT min 3V INDICATION: Right wrist pain TECHNIQUE: Three views of the right wrist are obtained. COMPARISON: None available FINDINGS: No fracture, dislocation, or subluxation. The bones, soft tissues, and joint spaces are nor mal. IMPRESSION: 1. No acute osseous abnormality. Reviewed, dictated and finalized at location [facility].
[2023-01-20 18:09] VITALS: BP 143/108; PULSE 88; RESP 18; TEMP 36.2; O2SAT 99
--- NOTE | 2023-01-20 19:04 | ED.GENADULT ---
HPI - General Adult General Chief complaint: Extremity Injury, Upper Stated complaint: Right Wrist Injury Time Seen by Provider: 01/20/23 19:04 Source: patient, RN notes reviewed and old records reviewed Mode of arrival: ambulatory Limitations: no limitations History of Present Illness HPI narrative: 32-year-old female presents to the [facility] with right dorsal hand pain worse with 4th metacarpal. Patient states that she tripped and landed hands out against a concrete. Did not hit head. No loss of consciousness. Pain with movement of the 4th finger. Capillary refill under 2 seconds. Positive radial pulse is Onset (ago): minute(s) (45) Related Data Home Medications Medication Instructions Recorded Confirmed buspirone 15 mg tablet 15 mg PO BID 10/20/20 01/20/23 pantoprazole 40 mg tablet,delayed 40 mg PO DAILY 04/13/22 01/20/23 release bupropion HCl 150 mg tablet,12 hr 150 mg PO BID 10/02/22 01/20/23 sustained-release escitalopram oxalate 5 mg tablet 5 mg PO DAILY 10/02/22 01/20/23 Allergies Allergy/AdvReac Type Severity Reaction Status Date / Time sumatriptan Allergy Intermediate Hives Verified 01/20/23 18:14 Review of Systems Review of Systems: All systems reviewed & are unremarkable except as noted in HPI and below Constitutional: Constitutional: Reports no additional constitutional complaints Eyes: Eyes: Reports no additional eye complaints ENT: Reports system reviewed and no additional complaints, except as documented Cardiovascular: Cardiovascular: Reports no additional cardiovascular complaints, Denies chest pain and Denies dyspnea Respiratory: Respiratory: Reports no additional respiratory complaints, Denies chest congestion, Denies cough and Denies dyspnea Gastrointestinal: Gastrointestinal: Reports no additional gastrointestinal complaints, Denies abdominal pain, Denies nausea and Denies vomiting Musculoskeletal: Musculoskeletal: Reports as per HPI Integumentary/Breasts: Skin/Breast: Reports system reviewed and no additional complaints, except as docu Neurologic: Reports system reviewed and no additional complaints, except as documented Psychiatric: Psychiatric: Reports no additional psychiatric complaints Allergic/Immunologic: Allergic/Immunologic: Reports no additional allergic/immunologic complaints PMFSH Past Medical History Medical History Anxiety Asthma GERD (gastroesophageal reflux disease) Morbid obesity PTSD (post-traumatic stress disorder) Rib contusion Surgical History Surgical History History of ankle surgery Hx of bilateral salpingectomy S/P removal of ovarian cyst right S/P vaginal hysterectomy Status post hysteroscopic ablation of endometrium Family History Family History Father Alcoholism Asthma Hypertension Depression Mother Hypertension Sibling Asthma Acute leukemia Depression Grandparent History of cancer Diabetes mellitus Grandparent Alcoholism History of cancer Hypertension Social History Social History Smoking status: Never smoker Living arrangements: with family Spiritual care concerns: No Comments At the time of my signature, I reviewed and agree with the nursing past medical, surgical, social, and family history. There is no relevant family history pertinent to the patient complaint. Exam Const: General: cooperative, healthy appearing, comfortable, no acute distress, well developed, alert and well nourished Nutritional Appearance: well nourished and obese Orientation/consciousness: patient oriented x3 Limitations: no limitations HENMT: Head: normal to inspection Ears: hearing grossly normal bilaterally and external ears normal Face/Nose/Sinus: Normal external nose present, Normal nare
== END 2023-01-20 19:14 | disposition home or self-care (01) ==
PROVIDERS: Emergency Provider Nurse Practitioner; PCP Family Medicine
DX: S63.501A Unspecified sprain of right wrist, initial encounter (principal); W01.0XXA Fall on same level from slipping, tripping and stumbling without subsequent striking against object, initial encounter
CPT/HCPCS: 73110; 73130; 99213; G0463

== ENCOUNTER 2023-02-24 12:24 | Emergency (ER) | payer OTHER, MEDICAID, SELFPAY ==
--- NOTE | 2023-02-24 12:52 | PC.NURSE ---
1230 following registration/prior to triage pt informed staff she does not want to be seen at this facility, stating she has was previously seen in er and would return.
== END 2023-02-24 12:30 | disposition left against medical advice (07) ==
LOC: EXPBETH 12:27
PROVIDERS: Emergency Provider Registered Nurse; PCP Family Medicine
DX: Z20.822 Contact with and (suspected) exposure to COVID-19 (principal)
CPT/HCPCS: 99199

== ENCOUNTER 2023-03-16 15:38 | Emergency (ER) | payer OTHER, MEDICAID, SELFPAY ==
--- NOTE | 2023-03-16 15:43 | ED.URI ---
HPI - URI/Sore Throat General Chief Complaint: Upper Respiratory Infection Stated Complaint: Needs Covid Confirm for work Time Seen by Provider: 03/16/23 15:58 Source: patient and RN notes reviewed Mode of arrival: ambulatory Limitations: no limitations History of Present Illness HPI Narrative: 32-year-old female presents with concern for returning to work. She reports she began having a cough 2 weeks ago. Reports Tuesday she started having nasal congestion and drainage. She reports on Tuesday she began having body aches, chills, general malaise, fatigue. She reports she tested positive for COVID on Tuesday. She has missed work and was supposed to return today but she still feels ill. She reports harsh cough. MD elicited complaint: cough and sore throat Related Data Home Medications Medication Instructions Recorded Confirmed buspirone 15 mg tablet 15 mg PO BID 10/20/20 03/16/23 pantoprazole 40 mg tablet,delayed 40 mg PO BID 04/13/22 03/16/23 release bupropion HCl 150 mg tablet,12 hr 150 mg PO BID 10/02/22 03/16/23 sustained-release escitalopram oxalate 5 mg tablet 5 mg PO DAILY 10/02/22 03/16/23 Allergies Allergy/AdvReac Type Severity Reaction Status Date / Time sumatriptan Allergy Intermediate Hives Verified 03/16/23 16:02 Review of Systems Review of Systems: CONSTITUTIONAL: Reports malaise, fatigue EYES: Denies visual changes, redness, or discharge. ENT: Reports rhinorrhea, congestion, and sore throat. CARDIOVASCULAR: Denies chest pain, palpitations, or edema. RESPIRATORY: Reports cough. Denies dyspnea. GASTROINTESTINAL: Denies abdominal pain, nausea, vomiting, diarrhea SKIN: Denies rash or itching. MUSCULOSKELETAL: Reports myalgia. NEUROLOGIC: Denies headache. All systems reviewed & are unremarkable except as noted in HPI and below PMFSH Past Medical History Medical History Anxiety Asthma GERD (gastroesophageal reflux disease) Morbid obesity PTSD (post-traumatic stress disorder) Rib contusion Surgical History Surgical History History of ankle surgery Hx of bilateral salpingectomy S/P removal of ovarian cyst right S/P vaginal hysterectomy Status post hysteroscopic ablation of endometrium Family History Family History Father Alcoholism Asthma Hypertension Depression Mother Hypertension Sibling Asthma Acute leukemia Depression Grandparent History of cancer Diabetes mellitus Grandparent Alcoholism History of cancer Hypertension Social History Social History Smoking status: Never smoker Alcohol intake: unknown Substance use: unknown Lack of Transportation: No Lack of Food: Never True Current Housing: I Have Housing Concerned About Future Housing: No Difficulty Paying Gas/Electric Bills: No Difficulty Paying for Meds: No Currently Unemployed: No Living arrangements: with family Occupation/Education: occupation Gender identity (if verbalized by the patient): Female Spiritual care concerns: No Comments At time of signature, agree with nursing past medical, surgical, social and family history. There is no relevant family history pertinent to the presenting complaint Exam Narrative: GENERAL: Well-appearing, well-nourished, and in no acute distress. HEAD: Normocephalic EYES: PERRLA, conjunctivae clear ENT: Nares clear. Mucous membranes moist. TM pearly corea with dull light reflex bilaterally; no tragal tenderness. Oropharynx erythematous without lesions. Tonsils not enlarged and without exudate, no drooling, no hoarseness, no trismus, uvula midline. NECK: Supple. No lymphadenopathy CHEST: Clear to auscultation, breath sounds equal. No wheezing, rhonchi, rales, or stridor. No respiratory distress, speaks in full sentences.
[2023-03-16 15:45] VITALS: BP 155/87; PULSE 100; RESP 20; TEMP 36.2; O2SAT 98
== END 2023-03-16 16:20 | disposition home or self-care (01) ==
PROVIDERS: Emergency Provider Nurse Practitioner; PCP Family Medicine
DX: J40 Bronchitis, not specified as acute or chronic (principal); Z20.822 Contact with and (suspected) exposure to COVID-19; J45.909 Unspecified asthma, uncomplicated; K21.9 Gastro-esophageal reflux disease without esophagitis; E66.01 Morbid (severe) obesity due to excess calories; Z68.41 Body mass index [BMI] 40.0-44.9, adult; F41.9 Anxiety disorder, unspecified
CPT/HCPCS: 87081; 87426; 87804; 87880; 99213; C9803; G0463

== ENCOUNTER 2023-07-08 15:56 | Outpatient (CLI) | payer OTHER, MEDICAID, SELFPAY ==
--- NOTE | ~2023-07-08 | US_ITS ---
US pelvic complete w TV DATE: 07/08/2023 16:55 INDICATION: Follow-up of a left ovarian cyst reportedly seen on outside imaging in January 2023 TECHNIQUE: Real-time imaging via transabdominal and transvaginal approaches COMPARISON: None FINDINGS: The uterus is been surgically removed. Neither ovary is well demonstrated.. No pelvic mass lesion or abnormal pelvic fluid collection is detected. IMPRESSION: Status post hysterectomy Neither ovary is well demonstrated. No cyst or pelvic mass lesion is identified. Consider pelvic CT e xamination. Reviewed, dictated and finalized at [facility]. Reviewed, dictated and finalized at location [facility]. IMPRESSION: Status post hysterectomy Neither ovary is well demonstrated. No cyst or pelvic mass lesion is identified . Consider pelvic CT examination.
== END 2023-07-08 15:57 | disposition home or self-care (01) ==
PROVIDERS: PCP Family Medicine; Visit Provider Obstetrics & Gynecology
DX: N83.202 Unspecified ovarian cyst, left side (principal)
CPT/HCPCS: 76830; 76856

== ENCOUNTER 2023-12-10 14:58 | Emergency (ER) | payer OTHER, MEDICAID, SELFPAY ==
--- NOTE | 2023-12-10 15:05 | ED.GENADULT ---
HPI - General Adult General Chief complaint: Upper Respiratory Infection Stated complaint: sore throat Time Seen by Provider: 12/10/23 15:05 Source: patient, RN notes reviewed and old records reviewed Mode of arrival: ambulatory Limitations: no limitations History of Present Illness HPI narrative: 32-year-old female to express Care with complaint of sore throat for 3 days. Patient requesting test for strep throat. patient reports attempting to treat at home with ibuprofen blood relief. 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 Patient denies shortness of breath, difficulty swallowing, cough, fever, pertinent medical history. Patient able tolerate fluids by mouth. Respirations even and nonlabored. Patient able to speak in complete sentences without difficulty. Patient in no acute distress. Related Data Home Medications Medication Instructions Recorded Confirmed buspirone 15 mg tablet 15 mg PO BID 10/20/20 10/13/23 pantoprazole 40 mg tablet,delayed 40 mg PO BID 04/13/22 10/13/23 release bupropion HCl 150 mg tablet,12 hr 150 mg PO BID 10/02/22 10/13/23 sustained-release escitalopram oxalate 5 mg tablet 5 mg PO DAILY 10/02/22 10/13/23 Allergies Allergy/AdvReac Type Severity Reaction Status Date / Time sumatriptan Allergy Intermediate Hives Verified 10/13/23 13:20 Review of Systems Review of Systems: All systems reviewed & are unremarkable except as noted in HPI and below Constitutional: Constitutional: Reports no additional constitutional complaints Eyes: Eyes: Reports no additional eye complaints ENT: Reports as per HPI and Reports sore throat Cardiovascular: Cardiovascular: Reports no additional cardiovascular complaints, Denies chest pain and Denies dyspnea Respiratory: Respiratory: Reports no additional respiratory complaints, Denies cough and Denies dyspnea Musculoskeletal: Musculoskeletal: Reports no additional musculoskeletal complaints Neurologic: Reports system reviewed and no additional complaints, except as documented Psychiatric: Psychiatric: Reports no additional psychiatric complaints PMF Past Medical History Medical History Anxiety Asthma GERD (gastroesophageal reflux disease) Morbid obesity PTSD (post-traumatic stress disorder) Rib contusion Surgical History Surgical History History of ankle surgery Hx of bilateral salpingectomy S/P removal of ovarian cyst right S/P vaginal hysterectomy Status post hysteroscopic ablation of endometrium Family History Family History Father Alcoholism Asthma Hypertension Depression Mother Hypertension Sibling Asthma Acute leukemia Depression Grandparent History of cancer Diabetes mellitus Grandparent Alcoholism History of cancer Hypertension Social History Social History Smoking status: Never smoker Alcohol intake: unknown Substance use: unknown Lack of Transportation: No Lack of Food: Never True Current Housing: I Have Housing Concerned About Future Housing: No Difficulty Paying Gas/Electric Bills: No Difficulty Paying for Meds: No Currently Unemployed: No Living arrangements: with family Occupation/Education: occupation Gender identity (if verbalized by the patient): Female Spiritual care concerns: No Comments At the time of my signature, I reviewed and agree with the nursing past medical, surgical, social, and family history. There is no relevant family history pertinent to the patient complaint. Exam Const: General: cooperative, no acute distress, alert, in distress mild ( From throat pain), uncomfortable and well nourished Nutritional Appearance: well nourished Orientation/consciousness
[2023-12-10 15:10] VITALS: BP 157/82; PULSE 93; RESP 18; TEMP 36.4; O2SAT 100
[2023-12-10 15:25] LABS: EDSTREPNEGPOS1 Negative (Negative)
== END 2023-12-10 16:03 | disposition home or self-care (01) ==
PROVIDERS: Emergency Provider Nurse Practitioner Family; PCP Family Medicine
DX: B37.0 Candidal stomatitis (principal); J45.909 Unspecified asthma, uncomplicated; K21.9 Gastro-esophageal reflux disease without esophagitis; E66.01 Morbid (severe) obesity due to excess calories; Z68.41 Body mass index [BMI] 40.0-44.9, adult; F41.9 Anxiety disorder, unspecified
CPT/HCPCS: 87081; 87880; 99213; G0463

== ENCOUNTER 2023-12-22 14:28 | Emergency (ER) | payer OTHER, MEDICAID, SELFPAY ==
[2023-12-22 14:50] VITALS: BP 132/85; PULSE 82; RESP 20; TEMP 36.9; O2SAT 100
--- NOTE | 2023-12-22 15:01 | ED.URI ---
HPI - URI/Sore Throat General Chief Complaint: Upper Respiratory Infection Stated Complaint: head cold/congestion Time Seen by Provider: 12/22/23 15:01 Source: patient Mode of arrival: ambulatory Limitations: no limitations History of Present Illness HPI Narrative: 32-year-old female presents with complaint of sinus congestion, sinus pressure, postnasal drainage, cough and sinus headaches for 1 week. Taking daily allergy medication with no relief. Took come COVID test and was negative. Afebrile. All systems reviewed and negative except as noted above. Related Data Home Medications Medication Instructions Recorded Confirmed buspirone 15 mg tablet 15 mg PO BID 10/20/20 10/13/23 pantoprazole 40 mg tablet,delayed 40 mg PO BID 04/13/22 10/13/23 release bupropion HCl 150 mg tablet,12 hr 150 mg PO BID 10/02/22 10/13/23 sustained-release escitalopram oxalate 5 mg tablet 5 mg PO DAILY 10/02/22 10/13/23 Allergies Allergy/AdvReac Type Severity Reaction Status Date / Time sumatriptan Allergy Intermediate Hives Verified 10/13/23 13:20 Review of Systems Review of Systems: CONSTITUTIONAL: Denies fever, chills, or sweats. reports fatigue. EYES: Denies visual changes, redness, or discharge. ENT: Reports rhinorrhea, congestion. Denies sore throat, or otalgia. CARDIOVASCULAR: Denies chest pain, palpitations, or edema. RESPIRATORY: reports cough. Denies dyspnea. GASTROINTESTINAL: Denies abdominal pain, nausea, vomiting, or diarrhea. GENITOURINARY: Denies dysuria or hematuria. SKIN: Denies rash or itching. MUSCULOSKELETAL: Denies back pain, joint pain, or myalgia. NEUROLOGIC: Denies headache, numbness, or weakness. PSYCHIATRIC: Denies anxiety or depression. All other systems reviewed are negative, except as documented in HPI. [facility] Past Medical History Medical History Anxiety Asthma GERD (gastroesophageal reflux disease) Morbid obesity PTSD (post-traumatic stress disorder) Rib contusion Surgical History Surgical History History of ankle surgery Hx of bilateral salpingectomy S/P removal of ovarian cyst right S/P vaginal hysterectomy Status post hysteroscopic ablation of endometrium Family History Family History Father Alcoholism Asthma Hypertension Depression Mother Hypertension Sibling Asthma Acute leukemia Depression Grandparent History of cancer Diabetes mellitus Grandparent Alcoholism History of cancer Hypertension Social History Social History Smoking status: Never smoker Alcohol intake: unknown Substance use: unknown Lack of Transportation: No Lack of Food: Never True Current Housing: I Have Housing Concerned About Future Housing: No Difficulty Paying Gas/Electric Bills: No Difficulty Paying for Meds: No Currently Unemployed: No Living arrangements: with family Occupation/Education: occupation Gender identity (if verbalized by the patient): Female Spiritual care concerns: No Comments At time of signature, agree with nursing past medical, surgical, social and family history. There is no relevant family history pertinent to the presenting complaint. Exam Narrative: GENERAL: This is a well-nourished, well-developed patient, in no apparent distress. HEAD: normocephalic, atraumatic. EYES: PERRL. Sclera clear/white. Vision is grossly intact. EARS: External ears normal, auditory canals clear and without drainage, Fluid bilateral TMs without erythema or perforation. Hearing grossly intact. NOSE: External nose normal with moderate congestion, purulent nasal drainage, erythema and swelling to bilateral nares THROAT: Mucous membranes moist, erythema postnasal drainage. Mild swelling without exudates. NE
== END 2023-12-22 15:15 | disposition home or self-care (01) ==
PROVIDERS: Emergency Provider Nurse Practitioner Family; PCP Family Medicine
DX: J01.90 Acute sinusitis, unspecified (principal); J45.909 Unspecified asthma, uncomplicated; K21.9 Gastro-esophageal reflux disease without esophagitis; E66.01 Morbid (severe) obesity due to excess calories; Z68.42 Body mass index [BMI] 45.0-49.9, adult; F41.9 Anxiety disorder, unspecified
CPT/HCPCS: 99213; G0463

== ENCOUNTER 2024-10-03 16:32 | Emergency (ER) | payer OTHER, MEDICAID, SELFPAY ==
[2024-10-03 16:35] VITALS: BP 149/84; PULSE 113; RESP 16; TEMP 37; O2SAT 97
--- NOTE | 2024-10-03 16:36 | ED_ITS ---
HPI - Skin/Abscess/Foreign Bdy General Chief complaint: Skin/Abscess/Foreign Body Stated complaint: Abscess on Left Leg Time Seen by Provider: 10/03/24 16:55 Source: patient and RN notes reviewed Mode of arrival: ambulatory Limitations: no limitations History of Present Illness HPI narrative: 33-year-old female presents concern for an abscess on her left leg. She reports an abscess that area that has been draining. Reports it is painful to sit on. She denies fever, aches, chills reports she has had abscesses in the past. MD complaint: abscess/boil Related Data Home Medications ?Medication ?Instructions ?Recorded ?Confirmed ?Last Taken ?Type buspirone 15 mg tablet 15 mg PO BID 10/20/20 10/13/23 10/23/21 05:00 History bupropion HCl 150 mg tablet,12 hr 150 mg PO BID 10/02/22 10/13/23 Unknown History sustained-release escitalopram oxalate 5 mg tablet 5 mg PO DAILY 10/02/22 10/03/24 Unknown History hydroxyzine HCl 25 mg tablet mg 01/29/24 Unknown History escitalopram oxalate 10 mg tablet mg 10/03/24 Unknown History meloxicam 15 mg tablet mg 10/03/24 Unknown History Allergies Allergy/AdvReac Type Severity Reaction Status Date / Time sumatriptan Allergy Intermediate Hives Verified 10/03/24 16:54 Review of Systems 2 Review of Systems: CONSTITUTIONAL: Denies malaise, chills, sweats, or fever. EYES: Denies redness, or discharge. RESPIRATORY: Denies cough or dyspnea. GASTROINTESTINAL: Denies abdominal pain, nausea, vomiting SKIN: Reports abscess MUSCULOSKELETAL: Denies joint pain or myalgia. NEUROLOGIC: Denies headache. All systems reviewed & are unremarkable except as noted in HPI and below PMFSH Past Medical History Medical History Anxiety Asthma GERD (gastroesophageal reflux disease) Morbid obesity PTSD (post-traumatic stress disorder) Rib contusion Surgical History Surgical History History of ankle surgery Hx of bilateral salpingectomy S/P removal of ovarian cyst right S/P vaginal hysterectomy Status post hysteroscopic ablation of endometrium Family History Family History Father Alcoholism Asthma Hypertension Depression Mother Hypertension Sibling Asthma Acute leukemia Depression Grandparent History of cancer Diabetes mellitus Grandparent Alcoholism History of cancer Hypertension Social History Social History Smoking status: Never smoker Alcohol intake: unknown Substance use: unknown Lack of Transportation: No Lack of Food: Never True Current Housing: I Have Housing Concerned About Future Housing: No Difficulty Paying Gas/Electric Bills: No Difficulty Paying for Meds: No Currently Unemployed: No Living arrangements: with family Occupation/Education: occupation Gender identity (if verbalized by the patient): Female Spiritual care concerns: No Comments At time of signature, agree with nursing past medical, surgical, social and family history. There is no relevant family history pertinent to the presenting complaint Exam Narrative: GENERAL: Well-appearing, well-nourished, and in no acute distress. HEAD: Normocephalic, atraumatic. EYES: PERRLA, conjunctivae clear, and EOMI. ENT: Mucous membranes moist. NECK: Supple. No lymphadenopathy CHEST: Clear to auscultation. No respiratory distress. HEART: Regular rate and rhythm. SKIN: Warm, dry. Round 4.5 x 3 cm raised area of erythema, induration, warmth, tenderness with sharp margins noted below the lower left buttock with serosanguineous and yellow drainage. No fluctuation NEURO: Alert and oriented x3. PSYCH: Normal mood and affect Course Course Emergency Course: Patient is aware of diagnosis, understands and agrees to treatment plan. Anticipatory guidance given. Patient agrees to follow-up as directed and is aware of reasons to seek care at the emergency department. Portions of this record may have been created with voice recognition software Level of Care: Express Care Visit Vital Signs Vital signs: Reviewed. MDM - Skin/Abscess/Foreign Bdy MDM Narrative Medical decision making narrative: I evaluated this in the express care. History is obtained from patient who is an independent historian and physical exam was performed.? Available medical records were reviewed. ? Exam findings and relevant testing show no acute concerns or changes; patient is non-toxic appearing and is in no distress. Does not appear at this time to be erythema multiforme, bullous, SJS, TEN; no evidence at this time to suggest RMSF, NSTI, endocarditis or Lyme disease; patient looks well, nontoxic and is tolerating oral intake; no neurologic signs or symptoms; no headache, photophobia or neck pain; afebrile.? Patient does not have history of of penetrating trauma, laceration, blunt trauma, recent surgery, immunosuppression, malignancy, obesity, alcoholism, corticosteroid use.? Discussed the importance of follow-up, patient agrees; question, cellulitis versus necrotizing soft tissue infection versus abscess.?? Patient is appropriate for outpatient treatment and follow-up. Critical Care Time Critical Care Time Critical Care Time: No Discharge Plan Discharge Clinical Impression: Abscess Patient Disposition: Home Condition: Stable Instructions: Antibiotic Form, Abscess (ED) Additional Instructions: Please follow up with your Primary Care Doctor within 48-72 hours - call for an appointment. Rest and elevate affected area; apply moist heat 3-4 times daily for 10-15 minutes. Take Motrin 600mg every 8 hours with food for pain. Please take Antibiotics as directed. If you experience any worsening redness, swelling, streaking (red lines), fever or chills please go to the ER Patient Language: Maldivian Prescriptions: New clindamycin HCl 300 mg capsule 300 mg PO Q8H 7 Days Qty: 21 0RF ketorolac 10 mg tablet 10 mg PO Q6H PRN (Reason: pain) 5 Days Qty: 20 0RF Held meloxicam 15 mg tablet Hold Instructions: Resume on 10/09/24. Do not take while taking ketorolac No Action bupropion HCl 150 mg tablet sustained-release 12 hr 150 mg PO BID escitalopram oxalate 5 mg tablet 5 mg PO DAILY hydroxyzine HCl 25 mg tablet escitalopram oxalate 10 mg tablet buspirone 15 mg tablet 15 mg PO BID Follow-up/Referrals: Andres,Radha Mcintyre MD [Primary Care Provider] - Stand Alone Forms: Work/School Release IP Time of Disposition: 17:04
--- OUTSIDE RECORDS SUMMARY | 2024-10-03 16:36 | XMS_ITS | Referral Summary ---
Author Organization [facility] Address [address] [place] [id number] Care Team Providers Care Overlock Sewing Machine Operator Name Role Phone Radha Ruvalcaba MD Primary Care Provider [phone] Encounters Date Type Department Care Team Description 07/31/2024 Telephone [facility] Gastroenterology at [address] [place] [address] Melissa Douglass MA from Last 3 Months Allergies Active Allergy Reactions Criticality Noted Date Comments Sumatriptan Medications busPIRone (BUSPAR) 10 mg tabletIndicatio ns:Generalized Anxiety Disorder Take 1 tablet (10 mg total) by mouth 2 (two) times a day Active buPROPion (WELLBUTRIN) 100 mg tablet Take 0.5 tablets (50 mg total) by mouth 2 (two) times a day Active albuterol (PROAIR RESPICLICK) 90 mcg/actuation inhaler Inhale Active Active Problems Problem Noted Date Diagnosed Date Heartburn 05/14/2022 Overview (05/14/2022): Added automatically from request for surgery [id number] Esophageal dysphagia 03/04/2022 Overview (03/04/2022): Added automatically from request for surgery [id number] Esophageal obstruction due to food impaction 10/2021 Social History Tobacco Use Types Packs/Day Years Used Date Smoking Tobacco: Never Tobacco Cessation:Counseling Given: Not Answered AUDIT-C Answer Date Recorded Q1: How often do you have a drink containing alc ohol? Never 05/14/2024 Average Number of Drinks Not on file 025 Frequency of Binge Drinking Not on file 04/28 Personal Safety Answer Date Recorded Have you ever been in or are you currently in a harmful physical or emotional relationship or is someone making you feel afraid or unsafe? 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 [employer] Gender Identity Not on file Sexual Orientation Not on file Last Filed Vital Signs Vital Sign Reading Time Taken Comments Blood Pressure 125/87 05/14/2024 1:18 PM BINDING CEMENTER [employer] Pulse 101 05/14/2024 1:18 PM BINDING CEMENTER [employer] Temperature 36.8 C (98.2 F) 02/21/2023 12:09 PM BINDING CEMENTER [employer] Respiratory Rate 18 02/21/2023 12:0 9 PM BINDING CEMENTER [employer] Oxygen Saturation 98% 05/14/2024 1:18 PM BINDING CEMENTER [employer] Inhaled Oxygen Concentration - - Weight 119.3 kg (263 lb 1.6 oz) 05/14/2024 1:18 PM BINDING CEMENTER [employer] Height 160 cm (5' 3) 05/14/2024 1:18 PM BINDING CEMENTER [employer] Body Mass Index 46.61 05/14/2024 1:18 PM BINDING CEMENTER [employer] Plan of Treatment Not on file Insurance CHOICE PLUS IDPA [facility] CHOICE PLUS IDPA Advance Directives For more information, please contact: [phone] * Full Code (Latest Code Status on File) Date Activated Date Inactivated Comments 03/04/2022 11:17 AM 03/04/2022 5:25 PM * Full Code Date Activated Date Inactivated Comments 03/04/2022 11:17 AM 03/04/2022 11:17 AM * Full Code Date Activated Date Inactivated Comments 03/04/2022 11:00 AM 03/04/2022 11:16 AM * Full Code Date Activated Date Inactivated Comments 03/04/2022 10:35 AM 03/04/2022 11:00 AM Care Teams Overlock Sewing Machine Operator Relationship Specialty Start Date End Date Radha Ruvalcaba MD [address] [place] [address] PCP - General Obstetrics and Gynecology 05/13/22
--- OUTSIDE RECORDS SUMMARY | 2024-10-03 16:36 | XMS_ITS | Clinical Summary ---
Author Organization [facility] Address [address] [place] [id number] Care Team Providers Care Mower Sharpener Name Role Phone Radha Ruvalcaba MD Primary Care Provider [phone] Allergies Active Allergy Reactions Criticality Noted Date [...] (05/14/2022): Added automatically from request for surgery [id number] Esophageal dysphagia 03/04/2022 Overview (03/04/2022): Added automatically from request for surgery [id number] Esophageal obstruction due to food impaction 10/2021 Encounters Date Type Department Care Team Description 07/31/2024 Telephone [facility] Gastroenterology at [address] [place] [address] Melissa Douglass MA from Last 3 Months Social History Tobacco Use Types Packs/Day Years [...] on file Legal Sex Female 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 Gender Identity Not on file Sexual Orientation Not on file Obstetrics History Last Filed Vital Signs Vital Sign Reading Time Taken Comments Blood Pressure 125/87 05/14/2024 1:18 PM GALLERY OR MUSEUM GUIDE Pulse 101 05/14/2024 1:18 PM GALLERY OR MUSEUM GUIDE Temperature 36.8 C (98.2 F) 02/21/2023 12:09 PM GALLERY OR MUSEUM GUIDE Respiratory Rate 18 02/21/2023 12:0 9 PM GALLERY OR MUSEUM GUIDE Oxygen Saturation 98% 05/14/2024 1:18 PM GALLERY OR MUSEUM GUIDE Inhaled Oxygen Concentration - - Weight 119.3 kg (263 lb 1.6 oz) 05/14/2024 1:18 PM GALLERY OR MUSEUM GUIDE Height 160 cm (5' 3) 05/14/2024 1:18 PM GALLERY OR MUSEUM GUIDE Body Mass Index 46.61 05/14/2024 1:18 PM GALLERY OR MUSEUM GUIDE Plan of Treatment Health Maintenance Due Date Last Done Comments Depression Screening 1988 Hepatitis C Screening 1988 Varicella Vaccines (1 of 2 - 13+ 2-dose series) 2001 Hepatitis B Screening 2006 Regular Well Visit/Exam 18-64 2006 Pneumococcal vaccine <65 (1 of 2 - PCV) 12/26/2007 Influenza Vaccine (Season Ended) 2024 DTaP/Tdap/Td Vaccine (3 - Td or Tdap) 04/21/2026 04/21/2016, 03/28/2002 HPV Vaccines Aged Out No longer eligi ble based on patient's age to complete this topic Insurance [facility] CHOICE PLUS IDPA [facility] CHOICE PLUS IDPA Advance Directives For more information, please contact: [phone] * Full Code (Latest Code Status on File) Date Activated Date Inactivated Comments 03/04/2022 11:17 AM 03/04/2022 5:25 PM * Full Code Date Activated Date Inactivated Comments 03/04/2022 11:17 AM 03/04/2022 11:17 AM * Full Code Date Activated Date Inactivated Comments 03/04/2022 11:00 AM 03/04/2022 11:16 AM * Full Code Date Activated Date Inactivated Comments 03/04/2022 10:35 AM 03/04/2022 11:00 AM Care Teams Mower Sharpener Relationship Specialty Start Date End Date Radha Ruvalcaba MD [address] [place] [id number] PCP - General Obstetrics and Gynecology 05/13/22
--- OUTSIDE RECORDS SUMMARY | 2024-10-03 16:36 | XMS_ITS | Clinical Summary ---
Author Organization [facility] Address [address] [facility] [place] [address] Care Team Providers Care Table Runner Name Role Phone Johana Gan Primary Care Provider [phone] Source Comments [facility],non-owned Affiliates and Associated Physician Practices is amultiple site organization consisting of ambulatory clinics and hospital sitesin [place], [place], [place] and [place]. This disclosure is being madepursuant to the Care Everywhere program and may not contain all information available regarding this patient. Last updated 17.[facility] Allergies Active Allergy Reactions Criticality Noted Date Comments Sumatriptan High 06/02/2016 Medications * Be aware that medications may not be up to date on this document. Alwaysverify current medications with the patient. 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 Gender Identity Not on file Sexual Orientation Not on file Last Filed Vital Signs Vital Sign Reading Time Taken Comments Blood Pressure 120/86 12/26/2016 11:41 AM CDT Pulse 97 12/26/2016 11:41 AM CDT Temperature 37.1 C (98.7 F) 12/26/2016 11:41 AM CDT Respiratory Rate - - Oxygen Saturation - - Inhaled Oxygen Concentration - - Weight 99.8 kg (220 lb) 12/26/2016 11:41 AM CDT Height 160 cm (5' 3) 12/26/2016 11:41 AM CDT Body Mass Index 38.97 12/26/2016 11:41 AM CDT Plan of Treatment Health Maintenance Due Date Last Done Comments HIV SCREENING 12/26/2003 HEPATITIS C SCREENING 12/21/2006 DTAP/TDAP/TD VACCINES (1 - Tdap) 12/26/2007 HEPATITIS B VACCINE (1 of 3 - 19+ 3-dose series) 12/26/2007 COVID-19 VACCINE (1 - 2023-2 5 season) 2023 DEPRESSION SCREENING 03/28/2024 INFLUENZA VACCINE (Season Ended) 2024 ZOSTER VACCINE (1 of 2) 2038 HIB VACCINE Aged Out No longer eligi ble based on patient's age to complete this topic HPV VACCINE Aged Out No longer eligi ble based on patient's age to complete this topic MENINGOCOCCAL (Group B) VACC INE SHARED DECISION-MAKING Aged Out No longer eligibl e based on patient's age to complete this topic MENINGOCOCCAL GROUPS A/C/Y/W VACCINE Aged Out No longer eligible b ased on patient's age to complete this topic PNEUMOCOCCAL VACCINE Aged Out No long er eligible based on patient's age to complete this topic Insurance MEDICAID - OUT OF [facility] Member Subscriber Plan / Payer (Ef fective for All Dates) Name:Emilie Chi Relation to Subscriber:Self Name:EMILIE CAVANAUGH Payer ID:Not on file Group ID:Not on file Type:Medicaid Address: [address] [facility] MEDICAID - OUT OF STATE [facility] Care Teams Table Runner Relationship Specialty Start Date End Date Johana Gan PA [address] [place] [id number] PCP - General 06/02/16
--- OUTSIDE RECORDS SUMMARY | 2024-10-03 16:36 | XMS_ITS | Clinical Summary ---
Author Organization [facility] Address [address] [facility] [place] [address] Phone Care Team Providers Care Television Service Engineer Name Role Phone Isiah Negrete DPM Unavailable [phone] Radha Ruvalcaba MD Primary Care Provider Lianne Valentin APRN, RURAL CARRIER ASSOCIATE Unavailable Allergies Active Allergy Reactions Criticality Noted Date Comments Sumatriptan Hives 06/02/2016 Medications BUPROPION HCL PO Take by mouth 2 times daily. Active albuterol (VENTOLIN HFA) 108 (90 Base) MCG/ACT Aerosol Solution take 2 Puffs by inhalation as needed for Wheezing. Active busPIRone (BUSPAR) 10 MG Tablet Take 10 mg by mouth 3 times daily. Active pantoprazole (PROTONIX) 40 MG Tablet Delayed Response 3 Active escitalopram (LEXAPRO) 10 MG Tablet Take 1 Tablet by mouth daily. Active meloxicam (MOBIC) 7.5 MG Tablet TAKE 1 TABLET BY MOUTH EVERY DAY FOR PAIN Active Active Problems Problem Noted Date Diagnosed Date Severe obstructive sleep apnea 10/17/2023 Class 3 severe obesity due t o excess calories without serious comorbidity with body mass index (BMI) of 45.0 to 49.9 in adult 10/17/2023 Family History Medical History Relation Name Comments Hypertension Father Cancer Maternal Grandmother Hypertension Mother Cancer Paternal Grandfather Diabetes Paternal Grandmother Relation Name Status Comments Father Alive Maternal Grandmother Mother Alive Paternal Grandfather Paternal Grandmother Social History Tobacco Use Types Packs/Day Years Used Date Smoking Tobacco: Never Smokeless Tobacco: Never Tobacco Cessation:Counseling Given: No Alcohol Use Standard Drinks/Week Comments Yes 0 (1 standard drink = 0.6 oz pur e alcohol) occasionally Comments No Sex and Gender Information Value Date Recorded Sex Assigned at Not on file Legal Sex Female 9:22 PM CDT Gender Identity Not on file Sexual Orientation Not on file Last Filed Vital Signs Vital Sign Reading Time Taken Comments Blood Pressure 124/70 10/17/2023 11:25 AM CDT Pulse 94 10/17/2023 11:25 AM CDT Temperature 36.4 C (97.6 F) 10/17/2023 11:25 AM CDT Respiratory Rate 14 10/17/2023 11:2 5 AM CDT Oxygen Saturation 97% 10/17/2023 11: 25 AM CDT Inhaled Oxygen Concentration - - Weight 118.4 kg (261 lb 1.6 oz) 024 11:25 AM CDT Height 160 cm (5' 3) 10/17/2023 11:25 AM CDT Body Mass Index 46.25 10/17/2023 11:25 AM CDT Plan of Treatment Upcoming Encounters Date Type Department Care Team (Late st Contact Info) Description 10/05/2024 10:30 AM CDT Telemedicine [facility] - Pulmonology & Sleep Medicine [facility] [address] [place] [address] Lianne Valentin, REINFORCED CONCRETE INSPECTOR, RURAL CARRIER ASSOCIATE [address] [address] Health Maintenance Due Date Last Done Comments Hepatitis C Virus (HCV) Screening 1988 Human Papillomavirus (HPV) Immunization (1 - 3-dose series) 12/26/2003 Hepatitis B Immunization (1 of 3 - 19+ 3-dose series) 12/26/2007 SARS-COV-2 Immunization ( season) 2023 11/03/2020, 11/03/2020, 10/13/2020, Additional history exists Influenza Immunization (#1) 2024 Respiratory Syncytial Virus (RSV) Immunization (Adult) (1 - 1-dose 75+ series) 12/26/2063 DTaP/Tdap/Td Immunization Discontinued 04/21/2016, 03/2002 TdaP Immunization Completed 04/21/2016, 03/28/2002 Meningococcal Immunization (ACWY) Aged Out No longer eligible based on patient's age to complete this topic Pneumococcal Immunization Combined Aged Out No longer eligible based on patient's age to complete this topic Rotavirus Immunization Aged Out No lo nger eligible based on patient's age to complete this topic Insurance MED[place]ID [place] [address] Care Teams Television Service Engineer Relationship Specialty Start Date End Date Radha Ruvalcaba MD [address] [place] [address] PCP - General Family Medicine 02/24/23 Isiah Negrete DPM Consulting Physician Podiatry 08/09/16 Lianne Valentin APRN, RURAL CARRIER ASSOCIATE #[address] [address] Nurse Practitioner Advanced Practice Nurse 10/13/23
--- OUTSIDE RECORDS SUMMARY | 2024-10-03 16:36 | XMS_ITS | Patient Health Record ---
Author Organization [facility] Address [address] [place] [address] Care Team Providers Care Green Jobs Trainer Name Role Phone Radha Ruvalcaba Primary Care Provider Libertad Angulo [phone] Allergies Allergen (clinical drug ingredient) Drug/Non Drug Allergy documented on EMR Reaction Allergy Type Onset Date Status sumatriptan Imitrex Unknown Drug Allergy Activ e Reason For Referral No Information Encounters Encounter Location Date Provider Diagnosis [facility] [address] [place] [address] 11/22/[address] [facility] [address] [place] [address] 01/20/2024 Libertad Ragland Plan Of Treatment No Information Insurance Providers Payer Name Payer Address Payer Phone Subscriber Number Group Number Insured Name Patient Relationship to Insured Coverage Start Date Coverage End Date [employer] [facility] [address] [address] [place] [address] [id number] Emilie Cavanaugh Self - patient is the insured Medical (General) History Medical History History ICD Code asthma, depression, anxiety, GERD, asthm a, sleep apnea, vitamin D deficiency Surgical History Surgery Date(Month/Year) hysterectomy, endometrial ablation, tend on repair
--- OUTSIDE RECORDS SUMMARY | 2024-10-03 16:36 | XMS_ITS | Encounter Summary ---
Author Organization [facility] Address [address] [place] [address] Care Team Providers Care Flavor Extractor Name Role Phone Linda Montelongo NP Primary Care Provider [phone] Radha Ruvalcaba MD Primary Care Provider [phone] Encounter Details Date Type Department Care Team (Late st Contact Info) Description 03/19/2022 Telephone [facility] [address] [place] [address] Brigid Alonzo, RT Social History Tobacco Use Types Packs/Day Years Used Date Smoking Tobacco: Never Comments Unknown Sex and Gender Information Value Date Recorded Sex Assigned at Not on file 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
== END 2024-10-03 17:07 | disposition home or self-care (01) ==
PROVIDERS: Emergency Provider Nurse Practitioner; PCP Family Medicine
DX: L02.416 Cutaneous abscess of left lower limb (principal); K21.9 Gastro-esophageal reflux disease without esophagitis; E66.01 Morbid (severe) obesity due to excess calories; Z68.42 Body mass index [BMI] 45.0-49.9, adult; J45.909 Unspecified asthma, uncomplicated; F41.9 Anxiety disorder, unspecified
CPT/HCPCS: 99213; G0463

== ENCOUNTER 2024-11-15 09:10 | Emergency (ER) | payer OTHER, MEDICAID, SELFPAY ==
[2024-11-15 09:16] VITALS: BP 146/88; PULSE 65; RESP 16; TEMP 36.3; O2SAT 98
--- NOTE | 2024-11-15 09:31 | ED.DENTAL ---
HPI - Dental/Oral General Chief complaint: Dental/Oral Stated complaint: Vomiting,Toothache Time Seen by Provider: 11/15/24 09:31 Source: patient Mode of arrival: ambulatory Limitations: no limitations History of Present Illness HPI Narrative: 33 yo F Presents with right lower dental pain. 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 Patient states she was taking Augmentin 4 days prior to extraction. After extraction they told her that they cleaned out infection and to stop antibiotic. Patient thinks that infection was not treated she still needs to take antibiotic. Patient also here for work note. All systems reviewed and negative except as noted above. Related Data Home Medications ?Medication ?Instructions ?Recorded ?Confirmed ?Last Taken ?Type buspirone 15 mg tablet 15 mg PO BID 10/20/20 10/13/23 10/23/21 05:00 History bupropion HCl 150 mg tablet,12 hr 150 mg PO BID 10/02/22 10/13/23 Unknown History sustained-release escitalopram oxalate 5 mg tablet 5 mg PO DAILY 10/02/22 11/15/24 Unknown History hydroxyzine HCl 25 mg tablet mg 01/29/24 Unknown History escitalopram oxalate 10 mg tablet mg 10/03/24 Unknown History meloxicam 15 mg tablet mg 10/03/24 Unknown History Held on 10/03/24. Instructions: Resume on 10/09/24. Do not take while taking ketorolac amoxicillin 875 mg-potassium tablet 11/15/24 Unknown History clavulanate 125 mg tablet tramadol 50 mg tablet mg 11/15/24 Unknown History Allergies Allergy/AdvReac Type Severity Reaction Status Date / Time sumatriptan Allergy Intermediate Hives Verified 11/15/24 09:33 [facility] Past Medical History Medical History Anxiety Asthma GERD (gastroesophageal reflux disease) Morbid obesity PTSD (post-traumatic stress disorder) Rib contusion Surgical History Surgical History History of ankle surgery Hx of bilateral salpingectomy S/P removal of ovarian cyst right S/P vaginal hysterectomy Status post hysteroscopic ablation of endometrium Family History Family History Father Alcoholism Asthma Hypertension Depression Mother Hypertension Sibling Asthma Acute leukemia Depression Grandparent History of cancer Diabetes mellitus Grandparent Alcoholism History of cancer Hypertension Social History Social History Smoking status: Never smoker Alcohol intake: unknown Substance use: unknown Lack of Transportation: No Lack of Food: Never True Current Housing: I Have Housing Concerned About Future Housing: No Difficulty Paying Gas/Electric Bills: No Difficulty Paying for Meds: No Currently Unemployed: No Living arrangements: with family Occupation/Education: occupation Gender identity (if verbalized by the patient): Female Spiritual care concerns: No Comments At time of signature, agree with nursing past medical, surgical, social and family history. There is no relevant family history pertinent to the presenting complaint. Exam Narrative: GENERAL: This is a well-nourished, well-developed patient, in no apparent distress. HEAD: normocephalic, atraumatic. EYES: PERRL. Sclera clear/white. Vision is grossly intact. EARS: External ears normal NOSE: External nose normal MOUTH: extraction noted to R lower with mild swelling. NECK: Neck supple, non-tender without lymphadenopathy, masses or thyromegaly. CARDIOVASCULAR: Regular rate and rhythm without murmurs, gallops, or rubs. RESPIRATORY: Clear to auscultation. Breath sounds equal bilaterally. No wheezes, rales, or rhonchi. SKIN: warm, Dry, intact with no suspicious lesions or rash, good texture and turgor. NEURO: awake, alert, and oriented to person, place and time. There were no obvious focal neurologic abnormalities. EXTREMITIES: No joint tenderness, effusion, or edema noted. Course Course Level of Care: Express Care Visit Vital Signs Vital signs: Vital Signs Temperature 36.3 C L 11/15/24 09:16 Pulse Rate 65 11/15/24 09:16 Respiratory Rate 16 11/15/24 09:16 Blood Pressure 146/88 H 11/15/24 09:16 Pulse Oximetry 98 11/15/24 09:16 Oxygen Delivery Room Air 11/15/24 09:16 Temperature 36.3 C L 11/15/24 09:16 Pulse Rate 65 11/15/24 09:16 Respiratory Rate 16 11/15/24 09:16 Blood Pressure 146/88 H 11/15/24 09:16 Pulse Oximetry 98 11/15/24 09:16 Oxygen Delivery Room Air 11/15/24 09:16 Reviewed MDM - Dental/Oral MDM Narrative Medical decision making narrative: patient is well-appearing, nontoxic. Will treat with antibiotic. Recommend she follow up with Dental School for any further dental problems. Discharge Plan Discharge Clinical Impression: Pain, dental Patient Disposition: Home Condition: Stable Instructions: Antibiotic Form, Tooth Extraction (DC) Additional Instructions: Take antibiotic as prescribed until gone. Continue to take ibuprofen or Tylenol every 6-8 hours to treat her pain. For all further dental concerns follow-up with Dental School where you had your extraction completed. Patient Language: Russian Prescriptions: New clindamycin HCl 300 mg capsule 300 mg PO Q8H 10 Days Qty: 30 0RF No Action bupropion HCl 150 mg tablet sustained-release 12 hr 150 mg PO BID escitalopram oxalate 5 mg tablet 5 mg PO DAILY hydroxyzine HCl 25 mg tablet meloxicam 15 mg tablet escitalopram oxalate 10 mg tablet tramadol 50 mg tablet amoxicillin-pot clavulanate 875-125 mg tablet buspirone 15 mg tablet 15 mg PO BID Follow-up/Referrals: Jordon,Radha Mcintyre MD [Primary Care Provider, Family Practice] Stand Alone Forms: Work/School Release IP Time of Disposition: 09:39
--- OUTSIDE RECORDS SUMMARY | 2024-11-15 09:32 | XMS_ITS | Encounter Summary ---
Author Organization [facility] Healthcare Address [address] [place] [address] Care Team Providers Care Beer Still Runner Compounder Name Role Phone Linda Montelongo NP Primary Care Provider [phone] Radha Ruvalcaba MD Primary Care Provider [phone] Encounter Details Date Type Department Care Team ([facility] Contact Info) Description 03/19/[address] [address] Brigid Alonzo, RT Social History Tobacco Use Types Packs/Day Years Used Date Smoking Tobacco: Never Comments Unknown Sex and Gender Information Value Date Recorded Sex Assigned at Not on file 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
--- OUTSIDE RECORDS SUMMARY | 2024-11-15 09:32 | XMS_ITS | Patient Health Record ---
Author Organization [employer] [facility] Address [address] [place] [address] Care Team Providers Care Servicenow Administrator Name Role Phone Zaheer Wilson Unavailable [phone] Reason For Referral No Information Plan Of Treatment No Information Insurance Providers Payer Name Payer Address Payer Phone Subscriber Number Group Number Insured Name Patient Relationship to Insured Coverage Start Date Coverage End Date Medicaid [address] [address] [place] [address] [phone] [id number] GABRIEL Self - patient is the insured 2
--- OUTSIDE RECORDS SUMMARY | 2024-11-15 09:32 | XMS_ITS | Clinical Summary ---
Author Organization [facility] Address [address] [place] [address] Care Team Providers Care Supervisor Special Effects Name Role Phone Johana Gan Primary Care Provider [phone] Source Comments [facility],non-owned Affiliates and Associated Physician Practices is amultiple site organization consisting of ambulatory clinics and hospital sitesin [place], [place], [place]. This disclosure is being madepursuant to the Care Everywhere program and may not contain all information available regarding this patient. 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 Gender Identity Not on file Sexual Orientation [...] of 3 - 19+ 3-dose series) 12/26/2007 HPV VACCINE (1 - 3-dose SCDM series) 12/26/2015 COVID-19 VACCINE (1 - 2023-2 5 season) 2023 DEPRESSION SCREENING 03/28/2024 INFLUENZA VACCINE (#1) 2024 ZOSTER VACCINE (1 of 2) 2038 [...] this topic Insurance MEDICAID - OUT OF [facility] Member Subscriber Plan / Payer (Ef fective for All Dates) Name:Emilie Chi Relation to Subscriber:Self Name:EMILIE CAVANAUGH Payer ID:Not on file Group ID:Not on file Type:Medicaid Address: [address] [facility] MEDICAID - OUT OF STATE [facility] Care Teams Supervisor Special Effects Relationship Specialty Start Date End Date Johana Gan PA [address] [place] [id number] PCP - General 06/02/16
--- OUTSIDE RECORDS SUMMARY | 2024-11-15 09:32 | XMS_ITS | Clinical Summary ---
Author Organization [facility] Address [address] [place] [address] Care Team Providers Care Reference Librarian Name Role Phone Radha Ruvalcaba MD Primary Care Provider [phone] Allergies Active Allergy Reactions Criticality Noted Date Comments Sumatriptan Medications busPIRone (BUSPAR) 10 mg tabletIndicatio ns:Generalized Anxiety Disorder Take 1 tablet (10 mg total) by mouth 2 (two) times a day Active buPROPion (WELLBUTRIN) 100 mg tablet Take 0.5 tablets (50 mg total) by mouth 2 (two) times a day Active albuterol (PROAIR RESPICLICK) 90 mcg/actuation inhaler Inhale Active traMADoL (ULTRAM) 50 mg tablet Take 1 tablet (50 mg total) by mouth every 6 (six) hours 15 tablet 11/10/2024 Active amoxicillin-cla vulanate (AUGMENTIN) 875-125 mg per tablet Take 1 tablet by mouth every 12 (twelve) hours 14 tablet 11/10/2024 Active Active Problems Problem Noted Date Diagnosed Date Heartburn 05/14/2022 Overview (05/14/2022): Added automatically from request for surgery [id number] Esophageal dysphagia 03/04/2022 Overview (03/04/2022): Added automatically from request for surgery [id number] Esophageal obstruction due to food impaction 10/2021 Encounters Date Type Department Care Team Description 11/10/2024 11:03 AM CDT - 11/10/2024 11:41 AM CDT Emergency [facility] Emergency Department [address] [place] [address] Pain, dental (Primary Dx) Discharge Disposition: Discharge to home or self care from Last 3 Months Social History Tobacco [...] making you feel afraid or unsafe? 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 Gender Identity Not on file Sexual Orientation Not on file Obstetrics History Last Filed Vital Signs Vital Sign Reading Time Taken Comments Blood Pressure 135/82 11/10/2024 11:40 AM CDT Pulse 68 11/10/2024 11:40 AM CDT Temperature 36 C (96.8 F) 11/10/2024 11:00 AM CDT Respiratory Rate 18 11/10/2024 11:40 AM CDT Oxygen Saturation 98% 11/10/2024 11:40 AM CDT Inhaled Oxygen Concentration - - Weight 117.9 kg (260 lb) 11/10/2024 11:00 AM CDT Height 160 cm (5' 3) 11/10/2024 11:00 AM CDT Body Mass Index 46.06 11/10/2024 11:00 AM CDT Plan of Treatment Health Maintenance Due Date Last Done Comments Depression Screening 1988 Hepatitis C Screening 1988 Varicella Vaccines (1 of 2 - 13+ 2-dose series) 2001 Hepatitis B Screening 2006 Regular Well Visit/Exam 18-64 2006 Pneumococcal vaccine <65 (1 of 2 - PCV) 12/26/2007 HPV Vaccines (1 - 3-dose SCDM series) 12/26/2015 Influenza Vaccine (#1) 2024 DTaP/Tdap/Td Vaccine (3 - Td or Tdap) 04/21/2026, 03/28/2002 Insurance [facility] Address: [place] [address] [employer] [facility] CHO[facility] PLUS [facility]/PPO Address: [place] [address] [employer] Advance Directives For more information, please contact: [phone] * Full Code (Latest Code Status on File) Date Activated Date Inactivated Comments 03/04/2022 11:17 AM 03/04/2022 5:25 PM * Full Code Date Activated Date Inactivated Comments 03/04/2022 11:17 AM 03/04/2022 11:17 AM * Full Code Date Activated Date Inactivated Comments 03/04/2022 11:00 AM 03/04/2022 11:16 AM * Full Code Date Activated Date Inactivated Comments 03/04/2022 10:35 AM 03/04/2022 11:00 AM Care Teams Reference Librarian Relationship Specialty Start Date End Date Radha Ruvalcaba MD [address] [place] [address] [place] [id number] PCP - General Obstetrics and Gynecology 05/13/22
--- OUTSIDE RECORDS SUMMARY | 2024-11-15 09:32 | XMS_ITS | Clinical Summary ---
Author Organization [facility] Address [address] [facility] [place] [address] Phone Care Team Providers Care Agricultural Crop Farm Manager Name Role Phone Isiah Negrete DPM Unavailable [phone] Radha Ruvalcaba MD Primary Care Provider [phone] Lianne Valentin APRN, KELP GATHERER Unavailable Allergies Active Allergy Reactions Criticality Noted [...] Active Problems Problem Noted Date Diagnosed Date Deviated nasal septum 10/05/2024 Severe obstructive sleep apnea 10/17/2023 Class 3 severe obesity due t o excess calories without serious comorbidity with body mass index (BMI) of 45.0 to 49.9 in adult 10/17/2023 Encounters Date Type Department Care Team Description 10/05/2024 10:30 AM CDT Telemedicine [facility] - Pulmonology & Sleep Medicine - [place] [address] [place] [address] Lianne Valentin APRN, CNP Severe obstructive sleep apnea (Primary Dx); Deviated nasal septum; Class 3 severe obesity due to excess calories without serious comorbidity with body mass index (BMI) of 45.0 to 49.9 in adult 10/04/2024 Travel from Last 3 Months Family History Medical History Relation Name Comments [...] Care Team (Late st Contact Info) Description 12/05/2024 2:30 PM CDT Office Visit [facility] - Ear, Nose & Throat - [place] [address] [facility] [place] [address] Lianne Valentin APRN, ERI[address] [address] Viktoria Lopez MD [address] [facility] [address] [place] [phone] 03/29/2025 10:30 AM 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 [facility] - [place] [address] [place] [phone] Lianne Valentin APRN, KELP GATHERER [address] [facility] [address] [place] [address] Health Maintenance Due Date Last Done Comments Hepatitis C Virus (HCV) Screening 1988 Hepatitis B Immunization (1 of 3 - 19+ 3-dose series) 12/26/2007 Human Papillomavirus (HPV) Immunization (1 - 3-dose SCDM series) 12/26/2015 SARS-COV-2 Immunization (3 - 2023- season) 2023 11/03/2020, 11/03/2020, 10/13/2020, Additional history [...] to complete this topic Insurance MEDICAID [facility] Care Teams Agricultural Crop Farm Manager Relationship Specialty Start Date End Date Radha Ruvalcaba MD [address] [place] [address] PCP - General Family Medicine 02/24/23 Isiah Negrete DPM Consulting Physician Podiatry 08/09/16 Lianne Valentin APRN, ERIK [address] [place] [address] [address] Nurse Practitioner Advanced Practice Nurse 10/13/23
--- OUTSIDE RECORDS SUMMARY | 2024-11-15 09:32 | XMS_ITS | Patient Health Record ---
Author Organization [facility] Address [address] [facility] [facility] [address] [place] [address] Care Team Providers Care Emergency Department Name Role Phone Radha Ruvalcaba Primary Care Provider Libertad Angulo [phone] Allergies Allergen (clinical drug ingredient) Drug/Non Drug Allergy documented on EMR Reaction Allergy Type Onset Date Status sumatriptan Imitrex Unknown Drug Allergy Activ e Reason For Referral No Information Encounters Encounter Location Date Provider Diagnosis [facility] [address] [facility] [address] [place] [address] 11/22/2023 Libertad Ragland [facility] [address] [address] [place] [address] 01/20/2024 Libertad Ragland Plan Of Treatment No Information Insurance Providers Payer Name Payer Address Payer Phone Subscriber Number Group Number Insured Name Patient Relationship to Insured Coverage Start Date Coverage End Date [employer] [facility] [address] [address] [place] [address] [id number] Emilie Cavanaugh Self - patient is the insured Medical (General) History Medical History History ICD Code asthma, depression, anxiety, GERD, asthm a, sleep apnea, vitamin D deficiency Surgical History Surgery Date(Month/Year) hysterectomy, endometrial ablation, tend on repair
== END 2024-11-15 09:40 | disposition home or self-care (01) ==
PROVIDERS: Emergency Provider Nurse Practitioner Family; PCP Family Medicine
DX: K08.89 Other specified disorders of teeth and supporting structures (principal); J45.909 Unspecified asthma, uncomplicated; K21.9 Gastro-esophageal reflux disease without esophagitis; E66.01 Morbid (severe) obesity due to excess calories; Z68.42 Body mass index [BMI] 45.0-49.9, adult; F41.9 Anxiety disorder, unspecified
CPT/HCPCS: 99213; G0463

== ENCOUNTER 2025-03-26 09:29 | Outpatient (CLI) | payer OTHER, SELFPAY ==
--- OUTSIDE RECORDS SUMMARY | 2025-03-26 09:45 | XMS_ITS | Data Portability ---
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 Plan of Treatment Reminders Order Date Submit Date Provider Last Modified By Organization Details Last Modified Time Details Appointments None recorded. Lab CMP, serum or plasma 2024 025 [facility], [address] [place] [address], [address], [address], 5 08:37:16 CBC 2024 025 [facility], [address] [place] [address], [facility] 2, [place], [address], 5 08:37:17 lipid panel, serum 2024 025 [facility], [address] [place] [address] 2, [place], [address], 5 08:37:15 HbA1c (hemoglobin A1c), blood 2024 025 [facility], [address] [facility], [facility] [address], [address], 5 08:37:17 culture, wound - I&D of right labial boil 2023 024 [facility], [address] [place] [address], [facility], [place], [address], 4 20:36:02 surgical pathology study - shave biopsy of left upper chest; patient with bleeding mole x2 months 2023 024 [facility], [address] [facility], [facility] 2, [place], [address], 4 18:37:09 Referral otolaryngol ogist referral - Chronic nasal congestion despite daily antihistami ne and intranasal spray use (previously used Flonase, now using over-the-co unter Afrin) 2024 025 [email or web address] Wong Edwards MD, [address] , [place], [address], 5 16:07:11 Procedures None recorded. Surgeries None recorded. Imaging None recorded. Medication Orders azelastine 137 mcg (0.1 %) nasal spray 2024 025 [place][id number], [address], [place], [place], [id number], 5 11:08:54 azelastine 137 mcg-flutica sone 50 mcg/spray nasal spray [address] [facility] #[id number], [address], [place], [place], [id number], 5 14:44:53 meloxicam 15 mg tablet 2024 025 [facility][id number], [address], [place], [place], [id number], 5 13:20:20 pantoprazol e 40 mg tablet,yasir yed release 2024 025 [facility] #[id number], [address], [place], [place], [id number], 13:20:20 bupropion HCl SR 150 mg tablet,12 hr sustained-r elease 2024 025 [place] [facility] #[id number], [address], [place], [place], [id number], 5 13:20:17 buspirone 15 mg tablet 2024 025 [id number], [address], [place], [place], [id number], 5 13:20:21 escitalopra m 10 mg tablet 2024 025 [place] [facility] #[id number], [address], [place], [place], [id number], 5 13:20:22 hydroxyzine HCl 25 mg tablet 2024 025 [place] [facility] #[id number], [address], [place], [place], [id number], 13:20:17 cephalexin 500 mg capsule [address] [facility] [employer] #[id number], [address], [place], [place], [id number], 12:28:11 Patient TargetsNo targets recorded. 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 COMMEN T Mater ial submi tted: . chest - LEFT UPPER CHEST SHAVE . Modif iers: left, upper Not Available [facility] ([facility]) [address] [facility], [place], [address], 01/25/2024 18:37:09 01/19/2001/25/2024 PATHO LOGY REPOR T . COMMEN T Clini chris provi ded ICD-1 0: L98.9 Not Available [facility] ([facility]) [address] [facility], [place], [address], 01/25/2024 18:37:09 01/19/2001/25/2024 PATHO LOGY REPOR T . COMMEN T Diagn osis: PREDO MINAN TLY INTRA DERMA L NEVUS WITH MILD ATYPI A. COMME NT: A REACT JAMIL/I RRITA KACY L ATYPI A IS FAVOR ED. CLINI DEANNE-P ATHOL OGIC CORRE LATIO N IS RECOM JANAK D. BXS 01/24 0906 Local Not Available [facility] ([facility]) [address] [facility], [place], [address], 01/25/2024 18:37:09 01/19/20 24 01/25/2024 PATHO LOGY REPOR T . COMMEN T Kat solis d: . Kendall stein MD, [place] topat holog ist Not Available [facility] ([facility]) [address] [facility], [place], [address], 01/25/2024 18:37:09 01/19/2001/25/2024 PATHO LOGY REPOR T . COMMEN T Gross descr iptio n: . 1 Conta iner, forma darlin-f illed , label ed with patie nt ident ifica tion. LEFT UPPER CHEST SHAVE : 1 SHAVE BIOPS Y OF HURT-B ROWN SKIN MEASU RING 0.7 X 0.6 X 0.1 CM. ON THE SURFA CE IS A FLAT HURT-B ROWN 0.7 CM LESIO N. THE LESIO N APPEA RS TO INVOL VE THE ARSALAN N. THE SURGI DEANNE ARSALAN N IS INKED RED. THE SPECI MEN IS TRISE CTED. IT IS SUBMI TTED ENTIR LUCIANA IN CASSE TTE(S ) A1. THERE ARE 3 PIECE S TOTAL . AVEL/D RA 01/22 0316 Local Not Available [facility] ([facility]) [address] [facility], [place], [address], 01/25/2024 18:37:09 01/19/20 24 01/25/2024 PATHO LOGY REPOR T . COMMEN T Patho logis t provi ded ICD-1 0: D22.5 Not Available [facility] ([facility]) [address] [facility], [place], [address], 01/25/2024 18:37:09 01/19/2001/25/2024 PATHO LOGY REPOR T . COMMEN T CPT . 31680 1 Not Available [facility] ([facility]) [address] [place], [address], 01/25/2024 18:37:09 01/27/20 24 01/31/2024 ANAER OBIC AND AEROB IC CULTU RE aerobic culture FINAL REPORT abnormal Not Available [facility] ([facility]) [address] [facility], [place], [address], 02/01/2024 20:36:02 01/27/20 24 01/31/2024 ANAER OBIC AND AEROB IC CULTU RE result 1 COMMEN T abnormal Methi cilli n - resis tant Staph yloco ccus aureu s Based on resis tance to oxaci llin this isola te would be resis tant to all curre ntly avail able beta- lacta m antim icrob ial agent s, with the excep tion of the newer cepha lospo rins with anti- MRSA activ ity, such as Cefta rolin e Moder ate growt h Not Available [facility] ([facility]) [address] [facility], [place], [address], 02/01/2024 20:36:02 01/27/20 24 01/31/2024 ANAER OBIC AND AEROB IC CULTU RE antimicrobia l susceptibili ty COMMEN T S = Susce ptibl e; I = Inter media te; R = Resis tant P = Posit jamil; N = Negat jamil MICS are expre ssed in micro grams per mL Antib iotic RSLT# 1 RSLT# 2 RSLT# 3 RSLT# 4 Cipro floxa urbano R Clind amyci n S Eryth romyc in R Genta micin S Levof loxac in I Linez olid S Oxaci llin R Penic illin R Rifam pin S Tetra cycli ne R Trime thopr im/Stratton lfa S Vanco mycin S Not Available [facility] ([facility]) [address] [facility], [place], [address], 02/01/2024 20:36:02 01/27/20 24 02/01/2024 ANAER OBIC AND AEROB IC CULTU RE anaerobic culture FINAL REPORT Not Available [facility] ([facility]) [address] [facility], [place], [address], 02/01/2024 20:36:02 01/27/20 24 02/01/2024 ANAER OBIC AND AEROB IC CULTU RE result 1 COMMEN T No anaer obic growt h in 72 hours . Not Available [facility] ([facility]) [address] [place], [address], 02/01/2024 20:36:02 08/31/19 25 08/31/2024 LIPID PANEL cholesterol, total 173 mg/dL 100-19 9 Not Available [facility] ([facility]) [address] [place], [address], 08/31/2024 08:37:15 08/31/19 25 08/31/2024 LIPID PANEL triglyceride s 188 mg/dL 0-149 above high normal Not Available [facility] ([facility]) [address] [place], [address], 08/31/2024 08:37:15 08/31/19 25 08/31/2024 LIPID PANEL HDL cholesterol 33 mg/dL >39 below low normal Not Available [facility] ([facility]) [address] [place], [address], 08/31/2024 08:37:15 08/31/19 25 08/31/2024 LIPID PANEL VLDL cholesterol deanne 33 mg/dL 5-40 Not Available [facility] ([facility]) [address] [place], [address], 08/31/2024 08:37:15 08/31/19 25 08/31/2024 LIPID PANEL LDL chol calc ([facility]) 107 mg/dL 0-99 above high normal Not Available [facility] ([facility]) [address] [place], [address], 08/31/2024 08:37:15 08/31/19 25 08/31/2024 COMP. METAB OLIC PANEL (14) glucose 69 mg/dL 70-99 below low normal Not Available [facility] ([facility]) [address] [place], [address], 08/31/2024 08:37:16 08/31/19 25 08/31/2024 COMP. METAB OLIC PANEL (14) BUN 19 mg/dL 6-20 Not Available [facility] ([facility]) [address] [place], [address], 08/31/2024 08:37:16 08/31/19 25 08/31/2024 COMP. METAB OLIC PANEL (14) creatinine 0.73 mg/dL 0.57-1 .00 Not Available [facility] ([facility]) [address] [place], [address], 08/31/2024 08:37:16 08/31/19 25 08/31/2024 COMP. METAB OLIC PANEL (14) eGFR 110 mL/mi n/1.7 3 >59 Not Available [facility] ([facility]) [address] [place], [address], 08/31/2024 08:37:16 08/31/19 25 08/31/2024 COMP. METAB OLIC PANEL (14) BUN/creatini ne ratio 26 9-23 above high normal Not Available [facility] ([facility]) [address] [place], [address], 08/31/2024 08:37:16 08/31/19 25 08/31/2024 COMP. METAB OLIC PANEL (14) sodium 138 mmol/ L 134-14 4 Not Available [facility] ([facility]) [address] [place], [address], 08/31/2024 08:37:16 08/31/19 25 08/31/2024 COMP. METAB OLIC PANEL (14) potassium 4.7 mmol/ L 3.5-5. 2 Not Available [facility] ([facility]) [address] [place], [address], 08/31/2024 08:37:16 08/31/19 25 08/31/2024 COMP. METAB OLIC PANEL (14) chloride 101 mmol/ L 96-106 Not Available [facility] ([facility]) [address], [place], [address], 08/31/2024 08:37:16 08/31/19 25 08/31/2024 COMP. METAB OLIC PANEL (14) carbon dioxide, total 24 mmol/ L 20-29 Not Available [facility] ([facility]) [address] [place], [address], 08/31/2024 08:37:16 08/31/19 25 08/31/2024 COMP. METAB OLIC PANEL (14) calcium 8.9 mg/dL 8.7-10 .2 Not Available [facility] ([facility]) [address] [place], [address], 08/31/2024 08:37:16 08/31/19 25 08/31/2024 COMP. METAB OLIC PANEL (14) protein, total 7.2 g/dL 6.0-8. 5 Not Available [facility] ([facility]) [address] [place], [address], 08/31/2024 08:37:16 08/31/19 25 08/31/2024 COMP. METAB OLIC PANEL (14) albumin 3.9 g/dL 3.9-4. 9 Not Available [facility] ([facility]) [address] [place], [address], 08/31/2024 08:37:16 08/31/19 25 08/31/2024 COMP. METAB OLIC PANEL (14) globulin, total 3.3 g/dL 1.5-4. 5 Not Available [facility] ([facility]) [address] [place], [address], 08/31/2024 08:37:16 08/31/19 25 08/31/2024 COMP. METAB OLIC PANEL (14) bilirubin, total <0.2 mg/dL 0.0-1. 2 Not Available [facility] ([facility]) [address] [place], [address], 08/31/2024 08:37:16 08/31/19 25 08/31/2024 COMP. METAB OLIC PANEL (14) alkaline phosphatase 128 IU/L 44-121 above high normal Not Available [facility] ([facility]) [address] [place], [address], 08/31/2024 08:37:16 08/31/19 25 08/31/2024 COMP. METAB OLIC PANEL (14) AST (SGOT) 19 IU/L 0-40 Not Available [facility] ([facility]) [address] [place], [address], 08/31/2024 08:37:16 08/31/19 25 08/31/2024 COMP. METAB OLIC PANEL (14) ALT (SGPT) 22 IU/L 0-32 Not Available [facility] ([facility]) [address] [place], [address], 08/31/2024 08:37:16 08/31/19 25 08/31/2024 HEMOG LOBIN A1C hemoglobin A1C 5.5 % 4.8-5. 6 Predi abete s: 5.7 - 6.4 Diabe lucius: >6.4 Glyce dede contr ol for adult s with diabe lucius: <7.0 Not Available [facility] ([facility]) [address] [place], [address], 08/31/2024 08:37:17 08/31/19 25 08/31/2024 CBC, PLATE LET, NO DIFFE RENTI AL WBC 9.1 x10e3 /uL 3.4-10 .8 Not Available [facility] ([facility]) [address] [place], [address], 08/31/2024 08:37:17 08/31/19 25 08/31/2024 CBC, PLATE LET, NO DIFFE RENTI AL RBC 4.80 x10e6 /uL 3.77-5 .28 Not Available [facility] ([facility]) [address] [facility], [place], [address], 08/31/2024 08:37:17 08/31/1908/31/2024 CBC, PLATE LET, NO DIFFE RENTI AL hemoglobin 14.3 g/dL 11.1-1 5.9 Not Available [facility] ([facility]) [address] [facility], [place], [address], 08/31/2024 08:37:17 08/31/1908/31/2024 CBC, PLATE LET, NO DIFFE RENTI AL hematocrit 44.4 % 34.0-4 6.6 Not Available [facility] ([facility]) [address] [facility], [place], [address], 08/31/2024 08:37:17 08/31/1908/31/2024 CBC, PLATE LET, NO DIFFE RENTI AL MCV 93 fL 79-97 Not Available [facility] ([facility]) [address] [facility], [place], [address], 08/31/2024 08:37:17 08/31/1908/31/2024 CBC, PLATE LET, NO DIFFE RENTI AL MCH 29.8 pg 26.6-3 3.0 Not Available [facility] ([facility]) [address] [facility], [place], [address], 08/31/2024 08:37:17 08/31/1908/31/2024 CBC, PLATE LET, NO DIFFE RENTI AL MCHC 32.2 g/dL 31.5-3 5.7 Not Available [facility] ([facility]) [address] [facility], [place], [address], 08/31/2024 08:37:17 08/31/19 25 08/31/2024 CBC, PLATE LET, NO DIFFE RENTI AL RDW 12.3 % 11.7-1 5.4 Not Available [facility] ([facility]) [address] [facility], [place], [address], 08/31/2024 08:37:17 08/31/1908/31/2024 CBC, PLATE LET, NO DIFFE RENTI AL platelets 349 x10e3 /uL 150-45 0 Not Available [facility] ([facility]) [address] [facility], [place], [address], 08/31/2024 08:37:17 Result Notes None recorded. Problems Name Problem SNOMED Code Status Onset Date Resolution Date Notes Provider Name and Address Organization Details Recorded Time Mild intermitten t asthma 256540101 Active LIANE AG NP Attn: Oren elena,[address] [place], [place], [address] [place] [address], [place] - [facility] 2 11:09:02 History of asthma 109912892 Completed 03/22/2018 Johana Gan PA-C Attn: Oren parker,[address] [place], [place], [address] [place] [address], [place] [facility] 8 16:02:39 Depressive disorder 77166189 Active Johana Gan PA-C Attn: Adinnicolas parker,[address] [place], [place], [address] [place] [address] 2, [place] [facility] 7 16:40:45 Obesity 663916431 Active Johana Gan PA-C Attn: Oren g,[address] [place], [place], [address] [place] [address], [place] [facility] 7 16:40:45 Anxiety 44999807 Active Johana Gan PA-C Attn: Accountnicolas g,[address] [place], [place], [address] [place] [address], [place] [facility] 7 16:40:45 Gastroesoph ageal reflux disease 355922865 Active Johana Gan PA-C Attn: Oren g,[address] [place], [address] [place] [address], [place] [facility] 7 16:40:45 Allergic rhinitis 92883413 Active Johana Gan PA-C Attn: Oren parker,[address] [place], [address] [place] [address], [place] [facility] 7 16:40:45 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 Johana Gan PA-C Attn: Oren parker,[address] [place], [address] [place] [address], [place] [facility] 7 16:40:45 Strain of back muscle 122229540 Completed 04/21/2016 Johana Gan PA-C Attn: Oren parker,[address] [place], [address] [place] [address] 2, [place] [facility] 7 08:32:32 Herpes zoster 3829141 Completed 04/21/2016 Johana Gan PA-C Attn: Oren parker,[address] [place], [address] [place] [address], [place] [facility] 7 08:32:45 Upper respiratory infection 00571541 Completed 04/21/2016 Johana Gan PA-C Attn: Oren parker,[address] [place], [address] [place] [address], [place] [facility] 7 08:32:51 Tension-typ e headache 746743308 Active 2016 Johana Gan PA-C Attn: Oren parker,[address] [place], [address] [place] [address] 2, [place] [facility] 7 16:40:45 Obstructive sleep apnea syndrome 27340038 Active 2016 LIANE GA NP Attn: Oren parker,[address] [place], [address] [place] [address] 2, [place] [facility] 2 11:09:02 Lumbar radiculopat hy 404890874 Active 2018 Johana Gan PA-C Attn: Oren parker,[address] [place], [address], [place] [facility] 9 10:24:41 Mixed anxiety and depressive disorder 864674056 Active 2018 LIANE AG NP Attn: Oren parker,[address], [place], [address], [place] [facility] 2 11:09:02 Elevated blood-press ure reading without diagnosis of hypertensio n 127200580 Completed 202208/30/2024 RADHA RUVALCABA MD Attn: Oren parker,[address], [place], [address], [place] [facility] 5 14:36:28 Toothache 98140038 Active 2022 RADHA RUVALCABA MD Attn: Oren parker,[address], [place], [address], [place] [facility] 3 16:48:42 Thrombocyto sis 8129759 Completed 202205/13/2023 RADHA RUVALCABA MD Attn: Oren parker,[address], [place], [address], [place] [facility] 4 15:41:58 Alkaline phosphatase above reference range 012471036 Completed 202205/13/2023 RADHA RUVALCABA MD Attn: Oren parker,[address] [facility], [place], [address], [place] [facility] 4 15:42:01 Dyslipidemi a 464457911 Active 2022 RADHA RUVALCABA MD Attn: Oren parker,[address], [place], [address], [place] [facility] 3 11:18:01 Problem Notes None recorded. Procedures Surgical History Date Name Laterality Status Provider Name and Address Organization Details Recorded Time 01/27/20 24 I&D completed RADHA RUVALCABA MD Attn: Accounting,[address] [facility], [place], [address], [place] [facility] 02/23/2024 12:22:59 01/19/20 24 Shave Biopsy completed RADHA RUVALCABA MD Attn: Accounting,[address] [facility], [place], [address], [facility] - [facility] 01/19/2024 12:15:34 10/24/19 22 Vaginal hysterectomy completed RADHA RUVALCABA MD Attn: Accounting,[address] [facility], [place], [address], [facility] - [facility] 05/04/2022 16:52:20 06/11/19 22 endometrial ablation completed Monique Eby, [facility] - [place] 08/18/2021 10:59:59 06/11/19 22 Tubal Ligation completed Monique Carpio [facility] - [facility] 08/18/2021 11:00:11 08/21/19 21 Date of Last Pap Smear completed Tori Mcmahan [place] - [place] 09/04/2020 09:25:26 03/22/20 18 Nebulizer tx completed Johana Gan PA-C Attn: Accounting,[address] [facility], [place], [address], [facility] - [facility] 03/22/2018 18:16:10 03/28/19 05 Other completed Theresa Cho MA [place] - [place] 09/10/2014 14:11:30 Imaging Results None recorded. Procedure Notes None recorded. Medical Equipment None Reported. Allergies Allergen ID Allergen Name Allergen Category Reaction Reaction Severity Criticality Documentation Date Start Date Code Code System Note Provider Name and Address Organization Details Recorded Time 68521 Imitrex medicatio n photosens itivity severe Not available 09/10/2014 49410 3 RxNorm Theresa Cho MA null, [place] - [place] 5 14:11:30 Medications Name Sig Start Date Stop Date Status Note LastModified by Organization Details LastModified Time carisopro dol 350 mg tablet active Not Available Not Available No t Available cyclobenz aprine 10 mg tablet Take 1 tablet every 8 hours by oral route as needed. 08/30 completed Not Available Not Available Not Available bupropion HCl SR 150 mg tablet,12 hr sustained -release TAKE 1 TABLET BY MOUTH TWICE DAILY DIRECTED active Not Available Not Available No t Available promethaz ine-DM 6.25 mg-15 mg/5 mL oral syrup TAKE 5 ML BY MOUTH EVERY 4 TO 6 HOURS NEEDED FOR COUGH 05/04 completed Not Available Not Available Not Available nystatin 100,000 unit/mL oral suspensio n SWISH AND SWALLOW 5 ML BY MOUTH FOUR TIMES DAILY FOR 14 DAYS 01/18 completed Not Available Not Available Not Available prednison e 10 mg tablet take 4 tabs PO x 3 days, 3 tabs PO x 3 days, 2 tabs PO x 3 days, 1 tab Po x 3 days 04/10 completed Not Available Not Available Not Available doxycycli ne hyclate 100 mg capsule TAKE 1 CAPSULE BY MOUTH EVERY 12 HOURS 08/18 completed Not Available Not Available Not Available clindamyc in HCl 300 mg capsule TAKE 1 CAPSULE BY MOUTH EVERY 8 HOURS FOR 7 DAYS active Not Available Not Available No t Available albuterol sulfate 2.5 mg/3 mL (0.083 %) solution for nebulizat ion Inhale 3 mL 4 times a day by nebuliza tion route as needed for 15 days. 08/20 completed Not Available Not Available Not Available triamcino lone acetonide 0.5 % topical cream APPLY A THIN LAYER TO THE AFFECTED AREA(S) BY TOPICAL ROUTE 2 TIMES PER DAY 02/06 completed Not Available Not Available Not Available azithromy urbano 250 mg tablet TAKE 2 TABLETS (500 MG) BY ORAL ROUTE ONCE DAILY FOR 1 DAY THEN 1 TABLET (250 MG) BY ORAL ROUTE ONCE DAILY FOR 4 DAYS 04/10 completed Not Available Not Available Not Available ibuprofen 800 mg tablet TAKE 1 TABLET BY MOUTH THREE TIMES DAILY NEEDED FOR PAIN 05/04 completed Not Available Not Available Not Available fluconazo le 150 mg tablet Take 1 tablet every day by oral route. 04/10 completed Not Available Not Available Not Available benzonata te 200 mg capsule TAKE 1 CAPSULE BY MOUTH THREE TIMES DAILY NEEDED FOR COUGH 01/18 completed Not Available Not Available Not Available hydrocodo ne 5 mg-acetam inophen 325 mg tablet TAKE 1-2 TABLETS BY MOUTH EVERY 6 HOURS NEEDED FOR PAIN 02/25 completed Not Available Not Available Not Available meloxicam 15 mg tablet TAKE 1 TABLET BY MOUTH EVERY DAY FOR JOINT PAIN active Not Available Not Available No t Available prednison e 20 mg tablet TAKE 2 TABLETS BY MOUTH DAILY FOR 5 DAYS 01/18 completed Not Available Not Available Not Available metronida zole 500 mg tablet TAKE 1 TABLET BY MOUTH EVERY 12 HOURS 08/18 completed Not Available Not Available Not Available acetamino phen 300 mg-codein e 30 mg tablet TAKE 1 TABLET BY MOUTH EVERY 6 HOURS NEEDED 02/25 completed Not Available Not Available Not Available sulfameth oxazole 800 mg-trimet hoprim 160 mg tablet TAKE 1 TABLET BY MOUTH EVERY 12 HOURS IN ADDITION TO KEFLEX 08/30 completed Not Available Not Available Not Available tramadol 50 mg tablet TAKE 1 TABLET BY MOUTH EVERY 6 HOURS NEEDED FOR PAIN 05/04 completed Not Available Not Available Not Available acyclovir 800 mg tablet Take 1 tablet 5 times a day by oral route for 7 days. 07/20 completed Not Available Not Available Not Available ketorolac 10 mg tablet TAKE 1 TABLET BY MOUTH EVERY 6 HOURS FOR 5 DAYS NEEDED FOR PAIN. active Not Available Not Available No t Available meloxicam 7.5 mg tablet TAKE 1 TABLET BY MOUTH EVERY DAY FOR PAIN active Not Available Not Available No t Available Tessalon Perles 100 mg capsule Take 1 capsule 3 times a day by oral route as directed . 02/24 completed Not Available Not Available Not Available Microgest in FE 04/16 (28) 1 mg-20 mcg (21)/75 mg (7) tablet Take 1 tablet every day by oral route. 12/30 completed patient states no longer taking Not Available Not Available Not Available amoxicill in 875 mg tablet TAKE 1 TABLET BY MOUTH EVERY 12 HOURS FOR 7 DAYS 01/18 completed Not Available Not Available Not Available citalopra m 20 mg tablet Take 1 tablet every day by oral route at bedtime. 02/06 completed Not Available Not Available Not Available Nortrel (28) 1 mg-35 mcg tablet Take 1 tablet by oral route. 09/04 completed Not Available Not Available Not Available cephalexi n 500 mg capsule TAKE 1 CAPSULE BY MOUTH EVERY 12 HOURS FOR 7 DAYS FOR ABSCESS 08/30 completed Not Available Not Available Not Available pantopraz ole 40 mg tablet,de layed release Take 1 tablet every day by oral route. 2024 active Not Available Not Available Not Avai lable naproxen sodium 550 mg tablet 01/20 completed Not Available Not Available Not Available oseltamiv ir 75 mg capsule Take 1 capsule every day by oral route for 10 days. 06/20 completed Not Available Not Available Not Available buspirone 30 mg tablet TAKE 1/2 TABLET BY MOUTH TWICE DAILY 06/09 completed Not Available Not Available Not Available buspirone 10 mg tablet TAKE 3 TABLETS BY MOUTH TWICE DAILY 09/22 completed Not Available Not Available Not Available gabapenti n 300 mg capsule TAKE ONE CAPSULE BY MOUTH DAILY FOR 1 DAY, 2 CAPSULES DAILY FOR 1 DAY THEN 1 CAPSULE EVERY 8 HOURS THEREAFT ER 04/21 completed Not Available Not Available Not Available buspirone 7.5 mg tablet Take 1 tablet twice a day by oral route. 03/13 completed increase d dose Not Available Not Available Not Available omeprazol e 20 mg capsule,d elayed release TAKE ONE CAPSULE BY MOUTH EVERY DAY 05/04 completed Not Available Not Available Not Available estradiol 2 mg tablet TAKE 1 TABLET BY MOUTH DAILY 08/18 completed Not Available Not Available Not Available monteluka st 10 mg tablet TAKE 1 TABLET BY MOUTH EVERY DAY active Not Available Not Available No t Available hydroxyzi ne HCl 25 mg tablet active Not Available Not Available No t Available mupirocin 2 % topical ointment APPLY TOPICALL Y TO THE AFFECTED AREA TWICE DAILY active as needed Not Available Not Available Not Available norethind cezar acetate 1 mg-ethiny l estradiol 20 mcg tablet 08/18 completed Not Available Not Available Not Available norethind cezar acetate 5 mg tablet TAKE 1 TABLET BY MOUTH THREE TIMES DAILY FOR 3 DAYS THEN TAKE 1 TABLET BY MOUTH TWICE DAILY FOR 3 DAYS THEN TAKE 1 TABLET BY MOUTH DAILY FOR 3 DAYS 08/18 completed Not Available Not Available Not Available ergocalci ferol (vitamin D2) 1,250 mcg (50,000 unit) capsule TAKE 1 CAPSULE BY MOUTH EVERY WEEK 02/25 completed Not Available Not Available Not Available azelastin e 137 mcg (0.1 %) nasal spray USE 2 SPRAYS IN EACH NOSTRIL TWICE DAILY active Not Available Not Available No t Available Cheratuss in AC 10 mg-100 mg/5 mL oral liquid Take 10 mL twice a day by oral route as needed for 10 days. 04/10 completed Not Available Not Available Not Available methylpre dnisolone 4 mg tablets in a dose pack FOLLOW PACKAGE DIRECTIO NS 05/04 completed Not Available Not Available Not Available albuterol sulfate HFA 90 mcg/actua tion aerosol inhaler INHALE 2 PUFFS BY MOUTH FOUR TIMES DAILY NEEDED active Not Available Not Available No t Available ondansetr on 4 mg disintegr ating tablet DISSOLVE 1 TABLET ON THE TONGUE EVERY 6 TO 8 HOURS NEEDED 08/30 completed Not Available Not Available Not Available fluticaso ne propionat e 50 mcg/actua tion nasal spray,ny pension SHAKE LIQUID AND USE 1 SPRAY IN EACH NOSTRIL DAILY NEEDED 10/06 completed Not Available Not Available Not Available loratadin e 10 mg tablet Take 1 tablet every day by oral route. 10/06 completed Not Available Not Available Not Available naproxen 500 mg tablet TAKE 1 TABLET BY MOUTH TWICE DAILY NEEDED 07/17 completed Not Available Not Available Not Available amoxicill in 875 mg-potass ium clavulana te 125 mg tablet TAKE 1 TABLET BY MOUTH EVERY 12 HOURS FOR 7 DAYS 05/04 completed Not Available Not Available Not Available buspirone 15 mg tablet TAKE 1 TABLET BY MOUTH TWICE DAILY active Not Available Not Available No t Available oxycodone 5 mg tablet TAKE 1 TABLET BY MOUTH EVERY 6 HOURS NEEDED 05/04 completed Not Available Not Available Not Available hydroxyzi ne pamoate 25 mg capsule TAKE ONE CAPSULE BY MOUTH THREE TIMES DAILY NEEDED FOR ANXIETY 11/03 completed prn Not Available Not Available Not Available Microgest in Fe 1.5/30 (28) 1.5 mg-30 mcg (21)/75 mg (7) tablet TAKE 1 TABLET BY MOUTH DAILY active Not Available Not Available No t Available escitalop avril 10 mg tablet TAKE 1 TABLET BY MOUTH EVERY DAY active Not Available Not Available No t Available escitalop avril 5 mg tablet TAKE 1 TABLET BY MOUTH EVERY DAY 09/26 completed Not Available Not Available Not Available Vitamin D 08/30 completed otc Not Available Not Available Not Available cholecalc iferol (vitamin D3) 25 mcg (1,000 unit) tablet TAKE 1 TABLET BY MOUTH DAILY 01/18 completed Not Available Not Available Not Available carisopro dol 250 mg tablet TAKE 1 TABLET BY MOUTH TWICE DAILY NEEDED 07/17 completed Not Available Not Available Not Available azelastin e 137 mcg-fluti casone 50 mcg/spray nasal spray active Not Available Not Available Not Available fluticaso ne 113 mcg-salme terol 14 mcg/actua tion breath activated powdr INHALE 1 PUFF INTO THE LUNGS TWICE DAILY 07/17 completed Not Available Not Available Not Available Wixela Inhub 100 mcg-50 mcg/dose powder for inhalatio n Inhale 1 puff twice daily per inhalati on route 08/20 completed Not Available Not Available Not Available Simpesse 0.15 mg-30 mcg (84)/10 mcg(7) tablets,3 month dose pack TAKE 1 TABLET BY MOUTH DAILY. START THIS 08/18 completed Not Available Not Available Not Available [employer] At-Home COVID-19 Test kit TEST DIRECTED TODAY 02/25 completed Not Available Not Available Not Available Vitals Date Recorded Body height Body mass index (BMI) Body weight Body temperature Respiratory rate Heart rate Oxygen saturation Systolic And Diastolic Provider Name and Address Organization Details Last Updated DateTime 5 160.02 cm 47.3 kg/m2 286019. 16 g 98 [degF] 16 /min 82 /min 97 % 128/88 mm[Hg] Elizabeth Zavala [place] [facility] 5 12:31:06 Date Recorded Body height Body mass index (BMI) Body weight Heart rate Respiratory rate Body temperature Systolic And Diastolic Provider Name and Address Organization Details Last Updated DateTime 5 160.02 cm 47.3 kg/m2 457676. 16 g 110 /min 16 /min 97.5 [degF] 127/92 mm[Hg] Shamika Tate MA [facility] 5 10:50:16 Date Recorded Body height Body mass index (BMI) Body weight Oxygen saturation Heart rate Body temperature Systolic And Diastolic Provider Name and Address Organization Details Last Updated DateTime 4 160.02 cm 45.3 kg/m2 811245. 85 g 98 % 85 /min 98.2 [degF] 137/93 mm[Hg] [facility] 4 12:28:03 Date Recorded Body height Body mass index (BMI) Body weight Oxygen saturation Heart rate Body temperature Systolic And Diastolic Provider Name and Address Organization Details Last Updated DateTime 4 160.02 cm 45 kg/m2 732560. 16 g 97 % 85 /min 98.4 [degF] 136/91 mm[Hg] [facility] 4 11:47:30 Date Recorded Body height Body mass index (BMI) Body weight Oxygen saturation Heart rate Body temperature Systolic And Diastolic Provider Name and Address Organization Details Last Updated DateTime 4 160.02 cm 44.8 kg/m2 629081. 57 g 97 % 103 /min 99.1 [degF] 129/88 mm[Hg] [facility] 4 12:13:30 Social History Question Answer Notes LastModified by Organizat ion Details LastModified Time Tobacco Smoking Status Never Smoker Not Available [employer] 01/29/2020 03:43:24 Are You Blind Or Do You Have Difficulty Seeing? No Information not available 12/30/2020 Is Blood Transfusion Acceptable In An Emergency? Yes [id number] Information not available 01/29/2020 What Is Your Level Of Caffeine Consumption? Moderate Information not available 10/02/2024 How Much Tobacco Do You Chew? None [id number] Information not available 01/29/2020 In The 14 Days Before Symptom Onset, Have You Had Close Contact With A Laboratory-confir med COVID-19 While That Case Was Ill? No Information not available 08/20/2020 In The 14 Days Before Symptom Onset, Have You Had Close Contact With A Person Who Is Under Investigation For COVID-19 While That Person Was Ill? No Information not available 08/20/2020 Have You Been To An Area Known To Be High Risk For COVID-19? No Information not available 08/20/2020 Are You Deaf Or Do You Have Serious Difficulty Hearing? No Information not available 12/30/2020 What Type Of Diet Are You Following? REGULAR [id number] Information not available 01/29/2020 Which Illicit Or Recreational Drugs Have You Used? None [id number] Information not available 01/29/2020 What Is The Highest Grade Or Level Of School You Have Completed Or The Highest Degree You Have Received? [id number] Information not available 08/20/2020 Have There Been Any Changes To Your Family Or Social Situation? No [email or web address] Information no t available 09/04/2020 Live Alone Or With Others? With Others With Daughter Information not available 03/09/2017 Do You Have A High School Diploma Or Higher Education? Yes [email or web address] Information not available 09/04/2020 Do You Sometimes Have To Miss Your Medical Appointments Due To Difficult Getting Transportation? No [email or web address] Information not available 09/04/2020 Do You Feel Unfairly Treated Due To Things Such As Race, Age, Gender, Disability Or Some Other Reason? No [email or web address] Information not available 09/04/2020 Do You Feel Physically And Emotionally Safe While Living At Home? Yes [email or web address] Information not available 09/04/2020 Do You Feel Physically And Emotionally Safe In Your Neighborhood Or Other Public Places? Yes [email or web address] Information not available 09/04/2020 What Was The Date Of Your Most Recent Tobacco Screening? 10/02/2024 Information not available 10/02/2024 How Many Children Do You Have? 1 [id number] Information not available 01/29/2020 Performs Monthly Self-breast Exam? Yes Information no t available 04/13/2018 Do You Have Any Pets? No [email or web address] Information not available 09/04/2020 Do You Use Protection During Sex? No [id number] Information not available 01/29/2020 What Is Your Relationship Status? Single [id number] Information not available 01/29/2020 Do You Use Your Seat Belt Or Car Seat Routinely? Yes Information not available 08/20/2020 Seat Belts Used Routinely Yes Information not available 01/28/2015 Are You Sexually Active? Yes Information not available 08/20/2020 Smoke Alarm In Home Yes [email or web address] Information not available 12/19/2018 Do You Have Smoke And Carbon Monoxide Detectors In Your Home? Yes [email or web address] Information not available 09/04/2020 Are You Passively Exposed To Smoke? No [email or web address] Information no t available 09/04/2020 How Much Tobacco Do You Smoke? No [id number] Information not available 01/29/2020 General Stress Level Low Information not available 07/18/2019 Do You Use Sunscreen Routinely? No [id number] Information not available 01/29/2020 Has Tobacco Cessation Counseling Been Provided? No Information not available 08/20/2020 Sex: Female Functional Status Question Answer Note LastModified by Organizat ion Details LastModified Time Do you use any illicit or recreational drugs? No Information not available 08/20/2020 Do you or have you ever used any other forms of tobacco or nicotine? No Information not available 08/20/2020 What is your level of alcohol consumption? None [id number] Information not available 01/29/2020 Do you or have you ever used smokeless tobacco? Never used smokeless tobacco [id number] Information not available 01/29/2020 Are you currently employed? Yes [id number] Information not available 01/29/2020 Are you able to care for yourself independently? Yes [id number] Information not available 01/29/2020 What is your occupation? [email or web address] Information not available 07/18/2019 Do you or have you ever used e-cigarettes or vape? Never used electronic cigarettes [id number] Information not available 01/29/2020 What is your exercise level? Occasional [id number] Information not available 01/29/2020 Mental Status Question Answer Note LastModified by Organizat ion Details LastModified Time Do you feel stressed (tense, restless, nervous, or anxious, or unable to sleep at night)? [id number] stress Information not available 08/20/2020 Family History Relationship Description Onset Age of this Age Resolved Age Notes LastModified by Organization Details LastModified Time Mother Depressive disorder [email or web address] Not available 2014 11:17:02 Mother Disorder of thyroid gland [email or web address] Not available 2014 11:17:02 Mother Hypercholest erolemia [email or web address] Not available 2014 11:17:02 Mother Hypertensive disorder [email or web address] Not available 2014 11:17:02 Father Hypertensive disorder [email or web address] Not available 2014 11:17:02 Father Hypercholest erolemia [email or web address] Not available 2016 11:39:29 Paternal Grandmother Hypertensive disorder [email or web address] Not available 2014 11:17:02 Paternal Grandmother Diabetes mellitus [email or web address] Not available 2014 11:17:02 Paternal Grandfather Malignant lymphoma [email or web address] Not available 2014 11:17:02 Paternal Grandfather Malignant neoplasm of colon patern al great uncles and great grandf ather [email or web address] Not available 04/13/2018 09:15:19 Maternal Grandmother Malignant neoplasm of breast 45 49 [email or web address] Not available 03/28 09:13:46 Maternal Grandmother Malignant neoplasm of ovary 45 49 [email or web address] Not available 03/28 09:14:10 Brother Leukemia 27 [email or web address] Not avail able 06/12/2020 16:00:23 Medical History Condition Response Coronary Artery Disease N Other N Atrial Fibrillation N High Blood Pressure N Breast Cancer N Depression Y COPD N Blood Clots N Lung Disease N Breast Problem N Anesthesia Complications N Headaches/Migraines Y Anxiety Disorder Y Muscle, Joint, or Bone Problems N Arthritis N Infertility N Polyps N Acid Reflux (GERD) Y Cancer N Stroke N ADHD N Endometriosis N High Cholesterol N Liver Disease N Headaches Y Schizophrenia N Thyroid Problems N Kidney or Bladder Problems N GI Problems N Acne Y Skin Problems N Eating Disorder N Anemia Y Heart Attack (IA) N Ovarian Cancer N Diabetes N Blood Transfusions Y Seizures/Epilepsy N Abuse/Domestic Violence N Allergies Y Asthma Y Substance Abuse N Hepatitis N Heart Disease N Pre-Eclampsia N Osteoporosis N Heart Failure N Gynecological History Statement/Question Response Abnormal Pap N Flow Moderate Date of LMP On BCP's at Conception? N STIs/STDs N HPV Vaccine N Duration of Flow (days) 4 Age at Menarche 10 Current Control Method Hysterectom y Age at First Child 18 Frequency of Cycle (Q days) 28 Sexually Active? Y Menses Monthly Y Date of Last Pap Smear 08/20/2020 Sexual Problems? N LMP Definite Desired Control Method Hysterectom y Obstetrics History GPAL:G 1 P 1 0 0 1 Type Value Multiple Births 0 Full Term 1 Induced 0 Spontaneous 0 Premature 0 Living 1 Ectopics 0 Total 1 Immunizations Vaccine Type Date Status Note Provider Nam e and Address Organization Details Recorded Time COVID-19, mRNA, LNP-S, PF, 100 mcg/0.5mL dose or 50 mcg/0.25mL dose 10/13/2020 completed RADHA RUVALCABA MD Attn: [address] [place], [address], [place] [facility] 10/28/2023 08:48:35 COVID-19, mRNA, LNP-S, PF, 100 mcg/0.5mL dose or 50 mcg/0.25mL dose 11/03/2020 completed RADHA RUVALCABA MD Attn: [address] [place], [address], [place] [facility] 10/28/2023 08:48:35 Tdap 04/21/2016 completed Not Available [facility] 04/14/2019 02:33:05 Tdap 03/28/2002 completed Johana Gan PA-C Attn: [address] [place], [address], [place] [facility] 01/27/2017 16:40:33 Past Encounters Encounter ID Performer Location Encounter Start Date Encounter Closed Date Diagnosis/Indication Diagnosis SNOMED-CT Code Diagnosis ICD10 Code Diagnosis IMO Codes Diagnosis Note [id number] MD Elijah Mccall (Fam Med) [address] [place] [address] 09/10/2014 13:51:41 09/10/2014 15:00:50 Depressive disorder 30871475 Anxiety 13219060 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 will Rx NSAID for use and back muscle exercises. Renewal of prescription 895372454 Z76.0 [id number] [facility] [address] [place] [address] 01/28/2015 15:41:15 01/28/2015 16:44:41 Gynecologic examination 74952025 Z01.419 Venereal d isease screening 824661257 Z11.3 RTO 2 weeks for results. Contracept ion care management 633838110 Z30.9 PT. with blod clots and cramping x 3 mo. Will decrease estrogen in OCP. [id number] MD Brenda Bellehalto (MOLDING MANAGER) [address] [place] [address] 02/06/2015 11:11:23 02/06/2015 11:47:24 Gynecologic examination 01116078 Z01.419 Pap was normal, dwp. RTO PRN + 1 year Venereal d isease screening 429620809 Z11.3 Vaginal culture and STD panel were completely negative. Individual test results d/w pt. [id number] [facility] [address] [place] [address] 02/25/2016 09:47:45 02/25/2016 12:24:53 Contraception care management 305719609 Z30.9 Patient doing well on BCP, wishes to continue with current medication . Refill sent to pharmacy Gynecologi c examination 08936729 Z01.419 Last pap done 01/29/15 was negative.. Therefore, no pap needed. Body mass index 40+ - severely obese 444905374 Z68.41 Nutrition and exercise discussed. [id number] MD Elijah Mccall (Fam Med) [address] [place] [address] 03/11/2015 09:30:07 03/11/2015 10:41:52 Tuberculosis screening 324521769 Z11.1 [id number] MD Elijah Mccall (Fam Med) [address] [place] [address] 07/10/2015 15:35:39 07/10/2015 17:17:30 Herpes zoster 0680168 B02.9 [id number] MD Elijah Mccall ([facility]) [address] [place] [address] 07/21/2015 09:29:46 07/21/2015 10:00:11 Herpes zoster 8987754 B02.9 will continue on gabapentin . Upper resp iratory infection 19894866 J06.9 [id number] FUENTES Chaudhry (Adult Med) [address] [place] [address] 04/21/2016 09:51:23 04/21/2016 14:01:00 Mild recurrent major depression 80999348 F33.0 controlled on current medication Asthma 784963080 J45.90 9 well controlled cont PRN use of ventolin (script sent but had to be re-opened as documentat ion only) Long-term drug therapy 204974928 Z79.899 Hyperlipid emia screening 466378858 Z13.220 FHx of HLD, pt last tested around 3yrs ago says it was good Anxiety 30839012 F41.9 History of anemia 535058 002 Z86.2 Seasonal a llergic rhinitis 908456609 J30.2 cont PRN benadryl Administra tion of diphtheria, pertussis, and tetanus vaccine 431141000 Z23 Body mass index 30+ - obesity 207555669 Z68.39 increase exercise, follow heart healthy diet [id number] FUENTES Chaudhry (Adult Med) [address] [facility] [place] [address] 08/05/2016 14:29:39 08/06/2016 14:13:25 Asthma 406888027 J45.909 well controlled cont PRN use of ventolin Foot pain 97898662 M79.6 73 multi-fact orial with likely mild/moder ate ankle laxity/spr ain and bilateral plantar fasciitis. cont foot exercises, leg/calf massages. Stop ibuprofen, take naproxen bid w/ food and use Tylenol for breakthrou gh pain. Start carisoprod ol for muscle tightness & spasms. Long h/o ankle instabilit y, refer to podiatry for further recs. Depressive disorder 3547 9006 F33.0 stable Anxiety 72057186 F41.9 stable [id number] FUENTES Chaudhry (Adult Med) [address] [place] [address] 10/26/2016 14:21:34 10/27/2016 09:37:35 Low back pain 683225820 M54.5 likely muscle strain, possible disc herniation . Start conservati ve treatment w/ steroids, cont muscle relaxers, start PT. If no improvemen t will need MRI of Thoracolum bar spine. Pain of wrist region 566 45946 M25.531 likely tendinitis ; recommend wearing wrist brace nightly. prednisone followed by NSAID use, start exercises. [id number] MD Andre Hoffman (Adult Med) [address] [place] [address] 01/27/2017 15:59:13 02/01/2017 16:09:13 Anxiety 96598244 F41.9 getting worse, not sure why, but usually 1-2 times a year gets anxiety attacks. pt agreeable to trying different anxiety med, still ok to use hydroxyzin e PRN for anxiety attack or panic attacks, but use daily buspirone to treat underlying anxiety. Obstructiv e sleep apnea syndrome 08165045 G47.33 Witnessed periods of apnea and loud snoring. Hallwood sleepiness score = 13, BMI 40. Recommend sleep med referral for sleep study eval. 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 Depressive disorder 3548 9006 F33.0 stable on bupropion. cont current dose. Mild inter mittent asthma 189271490 J45.20 controlled Body mass index 40+ - severely obese 887404117 Z68.41 Start PT, will discuss weight management to help with GUME once musculoske letal sxs have improved. [id number] MD Andre Belle (MOLDING MANAGER) [address] [place] [address] 03/09/2017 11:11:51 03/10/2017 17:56:30 Gynecologic examination 38124398 Z01.411 Last pap done 01/29/15 was negative. Therefore, no pap needed. Body mass index 40+ - severely obese 597728586 Z68.41 Increased risk of heart disease discussed. Nutrition and exercise discussed. [id number] MD Andre Hoffman (Adult Med) [address] [place] [address] 03/10/2017 16:25:54 03/14/2017 15:36:36 Anxiety 49712510 F41.9 getting worse, taking buspirone bid and still needs to take hydroxyzin e. increased stress with mandatory work hours due to being short staffed, financial stressors and car problems. still taking wellbutrin BID; denies any worsening depression Pain of [facility] region 63831283 M25.511 M25.512 worse since last visit due to more hours working and no power steering on her car; no time to get to PT. Still taking naproxen. out of carisoprod ol and asking for refill. Obstructiv e sleep apnea syndrome 67117327 G47.33 Possible dx. Witnessed periods of apnea and loud snoring. Hall[place] sleepiness score = 13, BMI 39-40. Recommende d at last visit for sleep med referral for sleep study eval, but hasn't had time w/ work schedule to make appt. [id number] MD Andre Hoffman (Adult Med) [address] [place] [address] 04/13/2017 14:11:44 04/14/2017 14:03:57 Exposure to influenzavirus 014657699 Z20.828 Patients and relatives with both influenza A & B this past weekend. Now patient having fevers & myalgias that started this AM, flu swab negative. Recommend treating for exposure with tamiflu once a day. Patient instructed to call if med not covered by insurance. Influenza- like illness 61922840 B34.9 neg flu swab. cont symptomati c treatment with NSAID/tyle nol for myalgias and fevers, make sure to drink plenty of fluids. Anxiety 94199894 F41.1 higher dose buspirone seems to be helping, still taking PRN hydroxyzin e, but less often. Call if after acute illness she feels need for higher dose. [id number] MD Andre Hoffman (Adult Med) [address] [place] [address] 06/14/2017 10:06:36 06/14/2017 17:31:22 Increased frequency of urination 563289986 R35.0 UA w/ trace signs of infection; send out for culture, hold of abx. Vomiting 745316849 R11.1 0 without nausea, possible gastropare sis? check X-ray to r/o constipati on Early satiety 336372746 R68.81 see above. [id number] MD Andre Hoffman (Adult Med) [address] [place] [address] 06/30/2017 16:04:01 07/04/2017 14:17:21 Anxiety 33544851 F41.1 higher dose buspirone seems to be helping, still taking PRN hydroxyzin e, but less often. Swelling of lower leg 44 9466685 R22.41 right leg larger than left, not likely DVt, but need to r/o. she saw podiatry but didn't return for f/u. She has been doing PT exercises for foot/ankle issues but now pain radiating all the way up into right glute. Cont naproxen BID and muscle relaxer. Allergic rhinitis 915964 04 J30.1 take both loratadine & montelukas t together. Take benadryl only at night if congestion and/or rhinorrhea persists. Fatigue 05426507 R53.83 instructed again to make appt for sleep med referral. 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 bulging disc at L4 region. Start PT, short course of steroids as anti-infla mmatory since naproxen not helping. Cont muscle relaxants at bedtime to help her sleep. If PT is not helping, may need MRI. No radiation of pain at this time. [id number] MD Andre Hoffman (Adult Med) [address] [place] [address] 01/16/2018 15:59:18 01/16/2018 17:54:43 Sprain of right ankle [id number] S93.401D grade 2 sprain, recommend continued use of compressio n sleeve, she can't tolerate an air cast due to her plantar fasciitis; cont gentle stretches especially after work. Recommend she cont ibuprofen, but limit to no more than 800mg TID due to GERD sxs. We will refill Tylenol #3 to reduce NSAID overuse. Call if sxs worsen. Use crutches or can as needed to reduce burden on plantar fascii and her low back/hip w/ abnormal gait from sprain. Anxiety 90391709 F41.1 higher dose buspirone seems to be helping, still taking PRN hydroxyzin e, but less often. [id number] MD Andre Hoffman (Adult Med) [address] [place] [address] 02/22/2018 15:28:25 02/23/2018 12:18:47 Candidal vulvovaginitis 27067985 B37.3 take one tab x 1, repeat in one week if still symptomati c. Cellulitis of left external ear 6405110395 100090 H60.12 clean external ear well to area of new piercing. Try saline soaked cotton ball to left ear to help dry the drainage. Finish all of abx. Call if worsening. NSAID for pain Acute tonsillitis 597214 08 J03.90 neg for strep; start steroid pack for swelling. She has deferred ENT referral in past for possible GUME [id number] MD Andre Hoffman (Adult Med) [address] [place] [address] 03/22/2018 15:44:03 03/23/2018 10:19:13 Acute exacerbation of asthma 698986258 J45.21 patient has not had asthma exacerbati on for a long time, recent URI, tonsilliti s has triggered it and ventolin not helping, she doesn't have tubing and albuterol for her nebulizer at home. Recommend she complete prednisone taper, abx and once that is completed, start using flovent twice a day until she is no longer using neb tx or ventolin regularly. [id number] MD Brenda Hoffmanhalto (Adult Med) [address] [place] [address] 04/10/2018 10:05:38 04/10/2018 17:41:40 Anxiety 88983611 F41.1 stress at work causing anxiety/pa stew attacks, throwing up in mornings. Advised her to try prilosec at bedtime, increase buspirone to 30mg BID and try nonpharmac ologic ways to deal w/ stress, anxiety. Given handout from [employer] on coping w/ stress at work. [id number] MD Andre Belle (MOLDING MANAGER) [address] [facility] [place] [address] 04/13/2018 08:55:12 04/14/2018 09:42:28 Gynecologic examination 72114599 Z01.411 Last pap done 01/29/15 was negative. Therefore, pap due. Pap done. Venereal d isease screening 394533589 Z11.3 RTO one week for results. Surveillan ce of oral contraception 910522124 Z30.41 Refill sent Body mass index 40+ - severely obese 678496367 Z68.41 Increased risk of heart disease discussed. Nutrition and exercise discussed. [id number] MD Brenda Bellehalto (MOLDING MANAGER) [address] [place] [address] 04/20/2018 15:34:35 04/21/2018 12:33:04 Gynecologic examination 72261701 Z01.411 Last pap done 04/13/18 was negative, dwp Venereal d isease screening 380126337 Z11.3 Vaginal culture was negative for gonorrhea, chlamydia, and trichomona s, dwp. STD panel was also completely negative. Individual test results dwp. [id number] MD Andre Hoffman (Adult Med) [address] [place] [address] 05/24/2018 14:56:03 05/25/2018 09:09:38 Anxiety 85878054 F41.1 Stressors have been reduced, she feels higher dose of buspirone also helping. Cont current dose 30mg bid Depressive disorder 3548 9007 F33.0 stable on bupropion. cont current dose. Pain in right knee 33281 21973 37177 M25.561 Given handout for AAOS knee conditioni ng. Recommend doing them at least 2-3 days a week. See if her job can provide rubber mats for prolonged standing on tile floor. She is having to take more carisoprod ol [id number] MD Andre Hoffman (Adult Med) [address] [place] [address] 06/09/2018 11:43:09 06/13/2018 09:38:18 Upper respiratory infection 97001948 J06.9 Exposure t o influenzavirus 171005258 Z20.828 Patients and relatives with both influenza A & B this past weekend. Now patient having fevers & myalgias that started this AM, flu swab negative. Recommend treating for exposure with tamiflu once a day. Patient instructed to call if med not covered by insurance. [id number] MD Andre Hoffman (Adult Med) [address] [place] [address] 06/20/2018 10:11:05 06/21/2018 08:57:57 Lumbar radiculopathy 167276897 M54.16 Recurrent back pain for past 2 years. She has done PT and still doing exercises, using NSAIDs and Tylenol #3 as well as muscle relaxer, using ice/heat w/o any relief. X-rays of spine negative for bony abnormalit y. Tenderness to L4-5 and right paraspinal area worrisome for bulging or herniated disc. Recommend MRI, pt agreeable to pain mgmt injections if needed. start prednisone , hold naproxen and other NSAIDs while taking this med. [id number] MD Andre Hoffman (Adult Med) [address] [place] [address] 08/23/2018 15:42:57 08/24/2018 14:10:04 Pain in right knee 3703288262 73157 M25.561 She has tried home PT exercises, nsaids, w/o relief. 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 ligament injury. Iliotibial band friction syndrome of right knee 6522810319 84869 M76.31 may be contributi ng to knee pain. recommend starting stretches for this. [id number] MD Andre Hoffman (Adult Med) [address] [place] [address] 10/06/2018 11:02:18 10/09/2018 11:27:36 Pain in right knee 5665982588 37884 M25.561 taking more than previous, will increase short term, advised she get MRI & see ortho Anxiety 15970481 F41.1 Stressors have been reduced, she feels higher dose of buspirone not helping as much as previous visits. reduce buspar to 15mg bid, start citalopram , cont prn hydroxyzin e. cont bupropion for mood. She didn't want to elaborate on stressors w/ dtr in room Dysphagia 73698217 R13.1 0 w/ solids such as meats. advised to modify diet to easier to eat foods, smaller bites, etcs. see GI, start PPI Gastroesop hageal reflux disease without esophagitis 771333409 K21.9 possible cause of dysphagia. 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, cont nsaid prn/bid and needs to see ortho as planned Prehypertension 69667406 9 R03.0 BP in pre-hypert ensive range, dwp risk, reducing salt and increasing exercise [id number] MD Elijah Frazier 14 IM [address] [facility] [address] [place] [address] 02/06/2019 15:40:09 02/07/2019 09:46:34 Adult health examination 569610821 Z00.00 Mixed anxi ety and depressive disorder 612319899 F41.8 [id number] MD Andre Belle (MOLDING MANAGER) [address] [place] [address] 07/18/2019 08:00:27 07/19/2019 12:17:26 Surveillance of oral contraception 107823902 Z30.41 Refill sent Gynecologi c examination 51205978 Z01.419 Last pap done 04/13/18 was negative. Therefore, no pap needed, dwp. Pt. is up-to-date on all screening. Pt. may delay her annual exam until next year due to the COVID-19 pandemic. However, she may come in sooner for any other concerns, dwp. [id number] Kaylyn Antonio MD [facility] [address] [place] [address] 06/12/2020 08:21:27 06/13/2020 14:56:44 Mild intermittent asthma 290716956 J45.20 - Instructed patient if albuterol usage increases beyond 2-3 times per week for 2 weeks, it may been a sign of worsening control. - Call office or go to ER for worsening cough, wheeze or work of breathing. - Follow up in office in 2 months - Patient verbalized understand ing. Renewal of prescription 378667256 Z76.0 [id number] MD Andre Belle (MOLDING MANAGER) [address] [place] [address] 08/20/2020 09:45:41 08/21/2020 10:04:58 Gynecologic examination 41921207 Z01.419 Last pap done 04/13/18 was negative. Next pap due prior to next AE. Pap done. Surveillan ce of oral contraception 641478684 Z30.41 Pt. with c/o dysmenorrh ea and feeling drained with her periods the past two months although the flow is not bad. Will decrease the estrogen in her OCPs. Rx sent. Instructio ns and expectatio ns discussed. Body mass index 40+ - severely obese 559237885 Z68.42 Nutrition and exercise discussed. Enlarged uterus 73646357 4 N85.2 Uterus enlarged on exam. US ordered. [id number] MD Andre Belle (MOLDING MANAGER) [address] [place] [address] 09/04/2020 09:19:42 09/10/2020 06:37:32 Health condition feared but not present 9331352960 53140 Z71.1 Pelvic US showed a normal sized uterus with two tiny fibroids, dwp. Pt. to start new lower dose OCP after finishing her current pack. If symptoms not improved in 3 mo., pt. to call office. [id number] Kaylyn Antonio MD [place] [address] [facility] [address] [place] [address] 12/30/2020 15:45:41 12/31/2020 12:40:33 Mixed anxiety and depressive disorder 900497068 F41.8 - Encouraged psychother apy in adjunct with medication therapy,.- All questions and concerns were addressed. - Pt to take meds as directed.- Pt is to monitor symptoms and RTC sooner if symptoms are worsening or not improving. Gastroesop hageal reflux disease 232759314 K21.9 - Patient states it getting harder for her to eat due to foos getting stuck in her throat. [id number] Kaylyn Antonio MD [facility] [address] [place] [address] 08/18/2021 10:46:08 08/20/2021 15:02:19 Mixed anxiety and depressive disorder 818878309 F41.8 - Encouraged psychother apy in adjunct with medication therapy,.- All questions and concerns were addressed. - Pt to take meds as directed.- Pt is to monitor symptoms and RTC sooner if symptoms are worsening or not improving. Body mass index 40+ - severely obese 593459559 Z68.41 advised low fat, low cholestero l, low carb diet, regular exercise and weight reduction. [id number] [facility] [address] [place] [address] 05/04/2022 15:48:33 05/06/2022 12:31:10 Mixed anxiety and depressive disorder 911945723 F41.8 - Well-contr olled on current medication s; refilled today Adult heal th examination 533124634 Z00.00 - Reviewed risks for cardiovasc ular disease, infection, and cancer; ordered screening tests as appropriat e Toothache 92826020 K08.8 9 - Patient with upcoming appointmen t at [facility] for tooth #16 extraction - Discussed appropriat e dosing of OTC pain medication s; will add Tylenol 3s as needed for breakthrou gh pain Elevated blood-pressure reading without diagnosis of hypertension 294818015 R03.0 - Elevated DBP of 90 today; reports normal BP normally but is in pain due to tooth- Will monitor BP at future visits [id number] MD Andre BOUCHER (MOLDING MANAGER) [address] [place] [address] 02/25/2023 17:01:37 03/29/2023 13:03:30 Cyst of left ovary 5731001952 9372925 N83.202 - Patient states that she has upcoming appointmen t with MOLDING MANAGER, who has already ordered follow up ultrasound - Will manage pain with oxycodone 5 mg every 6 hours as needed only for breakthrou gh pain. Recommende d Tylenol and ibuprofen as first line analgesics .- Adding Zofran ODT 4 mg every 6-8 hours as needed for nausea [id number] MD Andre BOUCHER (MOLDING MANAGER) [address] [place] [address] 05/04/2023 16:21:57 05/16/2023 10:39:06 Panic attack 374781632 F41.0 - Will treat with hydroxyzin e 25 mg TID PRN for anxiety/pa stew attacks- f/u counseling referral for additional support with managing symptoms Mixed anxi ety and depressive disorder 835213714 F41.8 - Symptoms no longer controlled on current medication s- Will increase escitalopr am to 10 mg daily [id number] MD Andre BOUCHER (MOLDING MANAGER) [address] [place] [address] 05/13/2023 15:52:04 05/17/2023 15:55:18 Adult health examination 127781566 Z00.00 - Reviewed risks for cardiovasc ular disease, infection, and cancer- Reviewed results of annual labs with patient in office Mixed anxi ety and depressive disorder 552076677 F41.8 - On escitalopr am 10 mg daily and hydroxyzin e 25 mg TID PRN- Okay to use hydroxyzin e 50 mg at bedtime to help with sleep Dyslipidemia 575729962 E 78.5 - 05/05/23: Tchol 195, HDL 36, LDL 145- Eats lots of red meat. Given handout on healthy fats and heart health. Elevated blood-pressure reading without diagnosis of hypertension 419886526 R03.0 - BP elevated but less than criteria for stage 1 HTN- Will continue to monitor- Advised low salt diet Body mass index 40+ - severely obese 388088500 Z68.41 - Discussed healthy behaviors, including eating a balanced diet- Provided handout on healthy lifestyle Sleep apnea 53653618 G47 .30 - Suspected GUME; reports never having a sleep study before- Consider referral to sleep medicine pending home sleep study results [id number] MD Andre BOUCHER (MOLDING MANAGER) [address] [place] [address] 09/27/2023 09:15:38 10/25/2023 20:06:14 Bilateral elbow joint pain 9413924647 6336734 M25.521 M25.522 - f/u ESR, CRP, RA profile to screen for rheumatolo gic disease- Will treat with once-daily meloxicam 7.5 mg to reduce pain and inflammati on Dyspnea 619932521 R06.00 - DDx includes asthma, symptomati c anemia, interstiti al lung disease, OHS. Less likely new CHF without associated orthopnea, PND, BLE edema.- Continue albuterol inhaler as needed. No confirmati on of asthma diagnosis with PFT, so will order now. Essential hypertension 51905387 I10 - BP higher than usual, possibly in setting of pain- Will recheck at next visit and determine whether to start antihypert ensives at that time [id number] MD Andre BOUCHER (MOLDING MANAGER) [address] [place] [address] 10/04/2023 09:39:29 10/25/2023 21:06:25 Alkaline phosphatase above reference range 804794660 R74.8 - f/u GGT to confirm liver source- f/u bone-speci fic alk phos- Will also repeat CMP and vitamin D levels to confirm persistenc e of finding and other abnormalit ies that may suggest bony cause Dyspnea 036459486 R06.00 - f/u D-dimer to rule out chronic PE- f/u XR to rule out consolidat ion, pleural effusion, cardiomega ly- PFT ordered at last visit not yet completed Blood urea above reference range 7112084240 R79.89 - f/u UA, urine albumin/cr eatinine ratio to evaluate kidney function [id number] MD Andre BOUCHER (MOLDING MANAGER) [address] [place] [address] 11/04/2023 09:35:35 11/07/2023 13:02:53 Dyslipidemia 882643892 E78.5 - 05/05/23: Tchol 195, HDL 36, LDL 145. Eats lots of red meat. Given handout on healthy fats and heart health.- 11/04/23: f/u repeat lipid panel Hypermobil ity of joint 000367380 R29.898 - Reviewed hEDS checklist with patient- Almost meets criteria for hEDS, although unable to fully assess Features A of Criterion 2 due to patient not having prior TTE. See scanned Health History Questionna isai for results.- Referred to rheumatolo salbador for further evaluation [id number] MD Andre BOUCHER (MOLDING MANAGER) [address] [place] [address] 01/11/2024 12:20:47 01/17/2024 16:17:42 Skin lesion 65968727 L98.9 - Suspect benign lesion but will remove due to ongoing bleeding x2 months- RTC for shave biopsy Mixed anxi ety and depressive disorder 759055776 F41.8 - Stable on escitalopr am 10 mg daily and hydroxyzin e 25 mg TID PRN- Okay to use hydroxyzin e 50 mg at bedtime to help with sleep [id number] MD Andre BOUCHER (MOLDING MANAGER) [address] [place] [address] 01/19/2024 11:37:13 01/28/2024 12:04:47 Elevated blood-pressure reading without diagnosis of hypertension 852131243 R03.0 - BP persistent ly elevated with DBP in HTN range- Advised home monitoring for at least 2 weeks. RTC if SBP >130, DBP >90. Skin lesion 16552407 L98 .9 - Suspect benign lesion but will remove due to ongoing bleeding x2 months- Shave biopsy performed without complicati on. f/u path report. [id number] [facility] [address] [place] [address] 01/27/2024 12:00:15 02/24/2024 16:51:40 Abscess of skin and/or subcutaneous tissue 61768349 L02.91 - I&D performed without complicati on- Will treat empiricall y with cephalexin 500 mg BID x5d; will adjust treatment based on aerobic/an aerobic culture [id number] MD Brenda BOUCHERhalto (MOLDING MANAGER) [address] [place] [address] 08/30/2024 12:11:34 08/31/2024 13:46:06 Obese class III 033445574 E66.813 5522706353 - Provided handout on healthy lifestyle Mixed anxi ety and depressive disorder 259916818 F41.8 - Stable on escitalopr am 10 mg, buspirone 15 mg BID, and bupropion SR 150 mg BID- Using hydroxyzin e 25 mg TID PRN for anxiety- Okay to use hydroxyzin e 50 mg at bedtime to help with sleep Dyslipidemia 710511013 E 78.5 - 05/05/23: Tchol 195, HDL 36, LDL 145. Eats lots of red meat. Given handout on healthy fats and heart health.- 11/04/23: Tchol 190, HDL 33, LDL 124- 08/30/24: f/u repeat lipid panel Diabetes m ellitus screening 110901620 Z13.1 - BMI >25 at age >35. DM2 screening recommende d per USPSTF; f/u A1c. Nasal congestion 6152455 0 R09.81 787300 - Inadequate response to daily antihistam ine and intranasal spray (previousl y Flonase, now using over-the-c ounter Afrin)- Advised patient of rebound congestion associated with chronic Afrin use- Will trial combinatio n azelastine -fluticaso ne nasal spray due to inadequate response to Flonase in the past. Advised patient on proper use of nasal spray for maximum efficacy.- Referred to ENT for further evaluation and treatment Panic attack 729191704 F 41.0 - Refilled home hydroxyzin e 25 mg TID PRN for anxiety/pa stew attacks Bilateral elbow joint pain 2707764437 1131054 M25.521 M25.522 - Chronic, stable on meloxicam 15 mg daily Gastroesop hageal reflux disease 673644016 K21.9 - Chronic, stable on pantoprazo le 40 mg daily General ex amination of patient 573186999 Z00.00 70238626 - Reviewed risks for cardiovasc ular disease, infection, and cancer; ordered screening tests as appropriat e- Recommende d annual flu vaccine and updated COVID vaccine- Additional vaccines recommende d by age/risk factors: N/A - UTD Obstructiv e sleep apnea syndrome 31529905 G47.30 - Severe GUME on home sleep study results- On CPAP [id number] Wong Edwards MD [facility] (Adult Med) [address] [place] [address] 10/02/2024 10:29:31 10/03/2024 14:35:23 Nasal obstruction 939861611 J34.89 91996 follow up 4 weeks Harmful pa ttern of substance use 1963908625 F18.10 8583024 stop sprays Health Concerns Section Related Observation LastModified by Organization Detai ls LastModified Time None Recorded Concern Status LastModified by Organization Details LastModified Time None Recorded Advance Directives Directive None Recorded Payers Insurance Date Sequence Insurance Name Policy Number Policy Bazzi Covered Member ID Bazzi Member ID Guarantor Name 11/05/2024 1 [facility] [id number] Emilie Cavanaugh [id number] Emilie Cavanaugh 08/30/2024 1 [facility] PRIOR TO 09/25/2020 (MEDICAID REPLACEMENT - HMO) Emilie Cavanaugh [id number] Emilie Cavanaugh 11/03/2024 2 [place] [employer] PUBLIC A[employer] Emilie Cavanaugh [id number] Emilie Cavanaugh 08/30/2024 1 [facility] PRIOR TO 09/25/2020 (MEDICAID REPLACEMENT - HMO) Emilie Cavanaugh [id number] Emilie Cavanaugh Notes Date Note Type Note Provider Name and Address Organization Details Recorded Time 4 text/html ROS as noted in the HPI Skin concern- Bleeding mole for past 2 months. Will notice bleeding after minimal manipulation such as after a shower.- Has had mole for as long as she can remember- No itching or irritation otherwise RADHA RUVALCABA MD Attn: [facility],[address] [place], [address], [facility] 01/11/2024 14:01:43 4 text/html ROS as noted in the HPI Skin lesion- Here for biopsy of bleeding mole x2 months. See office visit note from 01/11/24. RADHA RUVALCABA MD Attn: [facility],[address] [place], [address], [facility] 01/19/2024 12:17:07 4 text/html ROS as noted in the HPI Abscess concern- Sx for past 4 days- Lesion on right labia majora- Has tried warm compress, OTC analgesics, using a sterile needle to poke without relief- Hurts to sit, walk, stand, etc RADHA RUVALCABA MD Attn: [facility],[address] [facility], [place], [address], [facility] 02/23/2024 12:23:54 5 text/html ROS as noted in the HPI Annual wellnessCardiovascular risk- HTN: FHx of dad. No personal Hx.- DM2: Daughter with DM1, diagnosed 07/2021. Paternal grandma with DM2.- HLD: No known FHx.- Personal history of IA, CVA? No- Family history of IA, CVA? No known FHx. Infection risk- Prior testing for HIV? Yes - neg in 2019- Prior testing for HepC? Yes - neg in 2019- History of STIs? No- Vaccines due? COVID, flu Plans for - S/p salpingectomy 05/2021- S/p hysterectomy 09/2021 Cancer screenings- Breast cancer: FHx in maternal grandmother, who also had uterine and ovarian cancer. Mom and sisters are well. No breast changes.- Cervical cancer: Last screening 07/2020 -- NILM with neg hr-HPV test. History of hysterectomy in 09/2021 with normal path.- Colon cancer: FHx in paternal grandfather and great-grandfather. Dad has had benign polyps removed.- Lung cancer: Never smoker. Chronic congestion- Has difficulty breathing and feels like nasal membranes are swollen- Feels worse when using CPAP machine- Has been rotating between Zyrtec, Benadryl, Claritin, and Afrin quick release without improvement- Does not notice drainage- Has tried Flonase in the past without relief- No improvement with moving to a less chandu apartment Anxiety- Doing better with bupropion, escitalopram, buspirone daily with hydroxyzine PRN- Using hydroxyzine 2-3 times per week RADHA RUVALCABA MD Attn: [employer],[address] [place], [address], [facility] 08/30/2024 14:51:12 5 text/html ROS as noted in the HPI Pt complaining of nasal obstruction. She has had problems for years but is worse recently. She has been abusing OTC nasal sprays Wong Edwards MD Attn: [employer],[address] [facility], [place], [address], [facility] 10/02/2024 11:09:32 OBGyn Episode Ob Episode Information Episode Created Date Number of Fetuses Patient Bloodtype Patient rh Status Prepregnancy Weight lbs Domestic Partner Domestic Partner Phone Father Name Linotyper Status 01/29/20 15 1 CLOSED Fetus Data First Name Last Name Admitted to NICU Weight (g) Sex Living Outcome Pediatric Complications Fetus ID Race Codes Race Delivery Type 3883.88 15 F Full Term [id number] Vaginal Everett Calculation Initial Everett Date Initial Exam Date Initial Exam Provider Initial Ultrasound Date Last Menstrual Period Date Ultra Sound Weeks Gestation 0 Eighteen To Twenty Week Everett Update Ultra Sound Date Fundal Height At Umbil Quickening Date Ultra Sound Latest Weeks Gestation Final Everett Confirmed By Final Everett Confirmed Date Final Everett Date Ultra Sound Latest Days Gestation 0 0 Menstrual History Last Menstrual Date Menses Monthly On Bcp Conception Prior Menses Frequency Hcg Plus Date Menarche Onset Age Delivery Information Delivery Date Delivery Type Labor Anesthesia Weeks Gestation Incision Type Labor Labor Length Hrs Delivered By Post Complications Tubal Sterilization Discharge Date Comments 9 Discharge Information Feeding Method Contraceptive Method Maternal HG B and HCT Levels
--- OUTSIDE RECORDS SUMMARY | 2025-03-26 09:45 | XMS_ITS | Clinical Summary ---
Author Organization [facility] [employer] Address [address] [place] [address] Care Team Providers Care Computer Assembler Name Role Phone Johana Gan Primary Care Provider [phone] Source Comments [facility] [employer],non-owned Affiliates and Associated Physician Practices is amultiple site organization consisting of ambulatory clinics and hospital sitesin [place], [place], [place] and [place]. This disclosure is being madepursuant to the Care Everywhere program and may not contain all information available regarding this patient. 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 Gender Identity Not on file Sexual Orientation [...] VACCINE (1 - 3-dose SCDM series) 12/26/2015 DEPRESSION SCREENING 03/28/2024 COVID-19 VACCINE (1 - 2024-2 6 season) 2024 INFLUENZA VACCINE (#1) 2024 ZOSTER VACCINE (1 [...] this topic Insurance MEDICAID - OUT OF [facility] Member Subscriber Plan / Payer (Ef fective for All Dates) Name:Emilie Chi Relation to Subscriber:Self Name:EMILIE CAVANAUGH Payer ID:Not on file Group ID:Not on file Type:Medicaid Address: [address] [facility] MEDICAID - OUT OF STATE [facility] Care Teams Computer Assembler Relationship Specialty Start Date End Date Johana Gan PA [address] [place] [id number] PCP - General 06/02/16
--- OUTSIDE RECORDS SUMMARY | 2025-03-26 09:45 | XMS_ITS | Encounter Summary ---
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
--- OUTSIDE RECORDS SUMMARY | 2025-03-26 09:45 | XMS_ITS | Clinical Summary ---
Author Organization [facility] Address [address] [place] [id number] Care Team Providers Care Lactation Nurse Name Role Phone Radha Ruvalcaba MD Primary Care Provider [phone] Allergies Active Allergy Reactions Criticality Noted Date [...] (05/14/2022): Added automatically from request for surgery [id number] Esophageal dysphagia 03/04/2022 Overview (03/04/2022): Added automatically from request for surgery [id number] Esophageal obstruction due to food impaction 10/2021 Encounters Date Type Department Care Team Description 02/12/2025 Telephone [facility] Gastroenterology at [address] [place] [address] Nena Li Appointment Reschedule from Last 3 Months Social History Tobacco [...] on file Legal Sex 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 Gender Identity Not on file Sexual Orientation [...] - Td or Tdap) 04/21/2026, 03/28/2002 Insurance IDPA [facility] CHOICE PLUS IDPA Advance Directives For more information, please contact: [phone] * Full Code (Latest Code Status on File) Date Activated Date Inactivated Comments 03/04/2022 11:17 AM 03/04/2022 5:25 PM * Full Code Date Activated Date Inactivated Comments 03/04/2022 11:17 AM 03/04/2022 11:17 AM * Full Code Date Activated Date Inactivated Comments 03/04/2022 11:00 AM 03/04/2022 11:16 AM * Full Code Date Activated Date Inactivated Comments 03/04/2022 10:35 AM 03/04/2022 11:00 AM Care Teams Lactation Nurse Relationship Specialty Start Date End Date Radha Ruvalcaba MD [address] [place] [address] PCP - General Obstetrics and Gynecology 05/13/22
--- OUTSIDE RECORDS SUMMARY | 2025-03-26 09:45 | XMS_ITS | Clinical Summary ---
Author Organization [facility] Address [address] [facility] [place] [address] Phone Care Team Providers Care Humanities Teacher Name Role Phone PenelopeIsiah canales Annalise DPM Unavailable [phone] Radha Ruvalcaba MD Primary Care Provider Lianne Shen APRN, WAREHOUSE UNLOADER Unavailable [phone] Allergies Active Allergy Reactions Criticality Noted Date [...] Care Team (Late st Contact Info) Description 03/29/2025 10:30 AM DRAFTER ENGINEERING Telemedicine [facility] - Pulmonology & Sleep Medicine [facility] [address] [place] [address] Lianne Valentin APRN, WAREHOUSE UNLOADER [address] [address] Health Maintenance Due Date Last Done Comments Hepatitis C Virus (HCV) Screening 1988 Varicella Immunization (1 of 2 - 13+ 2-dose series) 2001 Hepatitis B Immunization (1 of 3 - 19+ 3-dose series) 12/26/2007 Influenza Immunization (#1) 2024 SARS-COV-2 Immunization ( season) 2024 11/03/2020, 11/03/2020, 10/13/2020, Additional history exists Respiratory Syncytial Virus (RSV) Immunization (Adult) (1 - 1-dose 75+ series) 12/26/2063 DTaP/Tdap/Td Immunization Discontinued 04/21/2016, 03/2002 TdaP Immunization Completed 04/21/2016, 03/28/2002 Human Papillomavirus (HPV) Immunization (No Doses Required) Completed Meningococcal Immunization (ACWY) Aged Out No longer eligible based on patient's age to complete this topic Pneumococcal Immunization Combined Aged Out No longer eligible based on patient's age to complete this topic Rotavirus Immunization Aged Out No lo nger eligible based on patient's age to complete this topic Insurance [facility] Care Teams Humanities Teacher Relationship Specialty Start Date End Date Radha Ruvalcaba MD PCP - General Family Medicine 02/24/23 Isiah Negrete DPM Consulting Physician Podiatry 08/09/16 Lianne Valentin, TYPESETTING MACHINE OPERATOR/TENDER, WAREHOUSE UNLOADER [address] [place] [address] Nurse Practitioner Advanced Practice Nurse 10/13/23
[2025-03-26 10:44] LABS: Syphilis IgG/IgM Antibody Non-Reactive (Nonreactive)
[2025-03-26 10:48] LABS: Hepatitis B Surface Antigen Negative (Negative)
[2025-03-26 10:55] LABS: HIV 1/2 Ab P24 Ag Result Negative (Negative)
== END 2025-03-26 09:30 | disposition home or self-care (01) ==
PROVIDERS: PCP Family Medicine; Visit Provider Nurse Practitioner Family
DX: Z11.3 Encounter for screening for infections with a predominantly sexual mode of transmission (principal)
CPT/HCPCS: 36415; 86593; 86703; 86803; 87340; G0432